=== PATIENT | male | born 1935 | race Caucasian/White ===

== ENCOUNTER 2017-10-10 01:48 | Emergency (ER) | payer MEDICARE, OTHER ==
[2017-10-10 02:25] VITALS: BP 167/74
--- NOTE | 2017-10-10 05:15 | EDM.PDOC ---
ED HPI GENERAL MEDICAL PROBLEM - General Chief Complaint: Chest Pain Stated Complaint: CHEST PAINS [id number] Time Seen by Provider: 10/10/17 02:40 Source of Information: Reports: Patient, Family, RN, RN Notes Reviewed History Limitations: Reports: No Limitations - History of Present Illness INITIAL COMMENTS - FREE TEXT/NARRATIVE: Pt presents to the ER with c/o chest pain that woke him at 0100. Pt states he took nitro x3 that relieved the pain. Pt denies SOB, radiation of pain. He states he had stents placed 1-2 years ago, after an GA. He states the pain was 5 /10 when present. Patient states he is pain free at this time. Onset: Today, Sudden Location: Reports: Chest Quality: Reports: Pressure Severity: Moderate Improves with: Reports: Medication Worsens with: Reports: None Associated Symptoms: Reports: No Other Symptoms Treatments DELI ASSOCIATE: Reports: Nitroglycerin Left Anterior Chest Pain Score (Numeric/FACES): 0 - Related Data Allergies Allergy/AdvReac Type Severity Reaction Status Date / Time codeine Allergy Hallucinati Verified 10/10/17 02:53 ons hydralazine Allergy Headache Verified 10/10/17 02:53 lansoprazole [From Prevacid] Allergy Rash Verified 10/10/17 02:53 morphine Allergy Cannot Verified 10/10/17 02:53 Remember Home Meds: Home Meds Isosorbide Mononitrate [Isosorbide Mononitrate ER] 60 mg PO BID 09/21/15 [ History] Simvastatin [Zocor] 10 mg PO DAILY 09/21/15 [History] Calcium Carb & Citrate/Vit D3 [Calcium + D3 ER Tablet] 1 tab PO BID 03/22/16 [ History] Furosemide [Lasix] 20 mg PO ASDIRECTED 03/22/16 [History] Losartan [Cozaar] 75 mg PO BID 03/22/16 [History] Metoprolol Succinate [Toprol XL 50mg] 25 mg PO DAILY 03/22/16 [History] NIFEdipine [Nifedipine ER] 30 mg PO DAILY 03/22/16 [History] Ranitidine [Zantac] 150 mg PO DAILY 03/22/16 [History] Clopidogrel Bisulfate [Clopidogrel] 75 mg PO DAILY 05/23/16 [History] Nitroglycerin [IJP: Nitroglycerin] 1 tab SL ASDIRECTED 05/23/16 [History] Aspirin 81 mg PO ONETIME 09/15/16 [History] Past Medical History HEENT History: Reports: Hard of Hearing, Impaired Vision Cardiovascular History: Reports: CAD, High Cholesterol, Hypertension, [place], Stents Gastrointestinal History: Reports: GERD Genitourinary History: Reports: Renal Disease, Other (See Below) Other Genitourinary History: proteinuria Musculoskeletal History: Reports: Arthritis Oncologic (Cancer) History: Reports: Prostate, Renal Other Oncologic History: skin - Past Surgical History Cardiovascular Surgical History: Reports: None, Coronary Artery Stent GI Surgical History: Reports: None, Hernia, Inguinal, Hernia Repair/Other Male Surgical History: Reports: Nephrectomy, Other (See Below) Musculoskeletal Surgical History: Reports: None Dermatological Surgical History: Reports: Other (See Below) Social & Family History - Family History Family Medical History: Noncontributory - Tobacco Use Smoking Status *Q: Never Smoker Second Hand Smoke Exposure: No - Caffeine Use Caffeine Use: Reports: Coffee - Recreational Drug Use Recreational Drug Use: No ED ROS GENERAL - Review of Systems Review Of Systems: ROS reveals no pertinent complaints other than HPI. ED EXAM, GENERAL - Physical Exam Exam: See Below Exam Limited By: No Limitations General Appearance: Alert, WD/WN, No Apparent Distress Eye Exam: Bilateral Eye: EOMI, Normal Inspection, PERRL Ears: Normal External Exam, Hearing Grossly Normal Nose: Normal Inspection Throat/Mouth: Normal Inspection, Normal Voice, No Airway Compromise Head: Atraumatic, Normocephalic Neck: Normal Inspection, Supple, Non-Tender, Full Range of Motion Respiratory/Chest: No Respiratory Distress, Lungs Clear, Normal Breath Sounds, No Accessory Muscle Use, Chest Non-Tender Cardiovascular: Normal Peripheral Pulses, Regular Rate, Rhythm, No Edema, No Gallop, No JVD, No Murmur, No Rub Peripheral Pulses: 2+: Radial (L), Radial (R), Dorsalis Pedis (L), Dorsalis Pedis (R) GI/Abdominal: Normal Bowel Sounds, Soft, Non-Tender, No Distention (Male) Exam: Deferred Rectal (Males) Exam: Deferred Back Exam: Normal Inspection, Full Range of Motion, NT Extremities: Normal Inspection, Normal Range of Motion, Non-Tender, Normal Capillary Refill, No Pedal Edema Neurological: Alert, Oriented, CN II-XII Intact, Normal Cognition, Normal Gait, Normal Reflexes, No Motor/Sensory Deficits Psychiatric: Normal Affect, Normal Mood Skin Exam: Warm, Dry, Intact, Normal Color, No Rash Lymphatic: No Adenopathy Course - Vital Signs Last Recorded V/S: Last Vital Signs Temp 98.5 F 10/10/17 02:05 Pulse 58 L 10/10/17 02:05 Resp 17 10/10/17 02:05 BP 167/74 H 10/10/17 02:05 Pulse Ox 96 10/10/17 02:05 - Orders/Labs/Meds Orders: Active Orders 24 hr Category Date Time Status EKG Documentation Completion [RC] URGENT Care 10/10/17 01:55 Active Chest 1V Frontal [CR] Urgent Exams 10/10/17 01:56 Taken Labs: Laboratory Tests 10/10/17 10/10/17 10/10/17 Range/Units 02:03 02:03 06:04 WBC 5.9 (5.0-10.0) 10^3/uL RBC 3.80 L (4.6-6.2) 10^6/uL Hgb 12.2 L (14.0-18.0) g/dL Hct 34.9 L (40.0-54.0) % MCV 91.8 (80-100) fL MCH 32.1 (27.0-34.0) pg MCHC 35.0 (33.0-35.0) g/dL Plt Count 189 (150-450) 10^3/uL Sodium 140 (135-145) mmol/L Potassium 4.3 (3.6-5.0) mmol/L Chloride 106 (101-111) mmol/L Carbon Dioxide 26.0 (21.0-31.0) mmol/L Anion Gap 12.3 BUN 28 H (7-18) mg/dL Creatinine 2.0 H (0.6-1.3) mg/dL Est Cr Clr Drug Dosing 26.14 mL/min Estimated GFR (MDRD) 32 BUN/Creatinine Ratio 14.00 Glucose 90 (74-105) mg/dL Calcium 9.0 (8.4-10.2) mg/dl Total Bilirubin 0.6 (0.2-1.0) mg/dL AST 37 (10-42) IU/L ALT 27 (10-60) IU/L Alkaline Phosphatase 54 (42-121) IU/L Troponin I 0.03 H* 0.03 H* (0.00-0.02) ng/ml Total Protein 7.0 (6.7-8.2) g/dl Albumin 3.9 (3.2-5.5) g/dl Globulin 3.1 Albumin/Globulin Ratio 1.26 Repeat Troponin 0.03 Departure - Departure Time of Disposition: 06:33 Disposition: Home, Self-Care 01 Condition: Fair Clinical Impression: Angina at rest Instructions: Angina Pectoris, [id number] Forms: ED Department Discharge Additional Instructions: Follow up with your primary care facility this week. Follow up with Cardiology. - My Orders Last 24 Hours: My Active Orders 10/10/17 01:55 EKG Documentation Completion [RC] URGENT 10/10/17 01:56 Chest 1V Frontal [CR] Urgent - Assessment/Plan Last 24 Hours: My Active Orders 10/10/17 01:55 EKG Documentation Completion [RC] URGENT 10/10/17 01:56 Chest 1V Frontal [CR] Urgent
--- NOTE | 2017-10-11 18:50 | EKG ---
10/10/2017 - CARSON KRAUSE I reviewed the EKG and agree with the machine's reading. [facility] /[id number]
== END 2017-10-10 06:45 | disposition home or self-care (01) ==
LOC: DL.ED 01:48
DX: I20.9 Angina pectoris, unspecified (principal); I10 Essential (primary) hypertension; I25.10 Atherosclerotic heart disease of native coronary artery without angina pectoris; E78.00 Pure hypercholesterolemia, unspecified; Z95.5 Presence of coronary angioplasty implant and graft; Z79.82 Long term (current) use of aspirin; Z79.02 Long term (current) use of antithrombotics/antiplatelets; Z79.899 Other long term (current) drug therapy; Z88.5 Allergy status to narcotic agent; Z88.8 Allergy status to other drugs, medicaments and biological substances
CPT/HCPCS: 36415; 71045; 80053; 84484; 85027; 93005; 93010; 99284; 99285

== ENCOUNTER 2018-11-24 09:39 | Emergency (ER) | payer MEDICARE, OTHER ==
[2018-11-24] MEDS ORDERED: Polyethylene Glycol 3350 Powder 17 GM Packet PO ONE (10:09)
--- NOTE | 2018-11-24 10:12 | EDM.PDOC ---
ED HPI GENERAL MEDICAL PROBLEM - General Chief Complaint: Abdominal Pain Stated Complaint: ABDOMINAL PAIN Time Seen by Provider: 11/24/18 10:10 Source of Information: Reports: Patient History Limitations: Reports: No Limitations - History of Present Illness INITIAL COMMENTS - FREE TEXT/NARRATIVE: Patient comes emergency department today with complaints of abdominal pain and constipation. He does have some waxing and waning constipation in the past. He has had left lower quadrant abdominal pain for the past 2-3 days. He is really not had a good bowel movement in 4-5 days. He typically takes Metamucil on a daily basis. He has no fever no chills. No nausea no vomiting. No weakness dizziness lightheadedness. No fever no chills he did try an enema this morning without resolution. - Related Data Allergies Allergy/AdvReac Type Severity Reaction Status Date / Time codeine Allergy Hallucinati Verified 10/10/17 02:53 ons hydralazine Allergy Headache Verified 10/10/17 02:53 lansoprazole [From Prevacid] Allergy Rash Verified 10/10/17 02:53 morphine Allergy Cannot Verified 10/10/17 02:53 Remember Home Meds: Home Meds Isosorbide Mononitrate [Isosorbide Mononitrate ER] 60 mg PO BID 09/21/15 [ History] Simvastatin [Zocor] 10 mg PO DAILY 09/21/15 [History] Calcium Carb & Citrate/Vit D3 [Calcium + D3 ER Tablet] 1 tab PO BID 03/22/16 [ History] Furosemide [Lasix] 20 mg PO ASDIRECTED 03/22/16 [History] Losartan [Cozaar] 75 mg PO BID 03/22/16 [History] Metoprolol Succinate [Toprol XL 50mg] 25 mg PO DAILY 03/22/16 [History] NIFEdipine [Nifedipine ER] 30 mg PO DAILY 03/22/16 [History] Ranitidine [Zantac] 150 mg PO DAILY 03/22/16 [History] Clopidogrel Bisulfate [Clopidogrel] 75 mg PO DAILY 05/23/16 [History] Nitroglycerin [IJP: Nitroglycerin] 1 tab SL ASDIRECTED 05/23/16 [History] Aspirin 81 mg PO ONETIME 09/15/16 [History] Past Medical History HEENT History: Reports: Hard of Hearing, Impaired Vision Cardiovascular History: Reports: CAD, High Cholesterol, Hypertension, [place], Stents Gastrointestinal History: Reports: GERD Genitourinary History: Reports: Renal Disease, Other (See Below) Other Genitourinary History: proteinuria Musculoskeletal History: Reports: Arthritis Oncologic (Cancer) History: Reports: Prostate, Renal Other Oncologic History: skin - Past Surgical History Cardiovascular Surgical History: Reports: None, Coronary Artery Stent GI Surgical History: Reports: None, Hernia, Inguinal, Hernia Repair/Other Male Surgical History: Reports: Nephrectomy, Other (See Below) Musculoskeletal Surgical History: Reports: None Dermatological Surgical History: Reports: Other (See Below) Social & Family History - Family History Family Medical History: Noncontributory - Caffeine Use Caffeine Use: Reports: Coffee ED ROS GENERAL - Review of Systems Review Of Systems: ROS reveals no pertinent complaints other than HPI. ED EXAM, GI/ABD - Physical Exam Exam: See Below Exam Limited By: No Limitations General Appearance: Alert, WD/WN, No Apparent Distress Ears: Normal External Exam Nose: Normal Inspection, Normal Mucosa Throat/Mouth: Normal Inspection, Normal Lips, Normal Oropharynx Respiratory/Chest: No Respiratory Distress, Lungs Clear, No Accessory Muscle Use Cardiovascular: Normal Peripheral Pulses, Regular Rate, Rhythm GI/Abdominal Exam: Soft, No Organomegaly, No Abnormal Bruit, No Mass, Tender ( Generalized tenderness without guarding or rebound.), Abnormal Bowel Sounds ( Decreased bowel sounds). No: Distended, Guarding, Rebound Back Exam: Normal Inspection Extremities: Normal Inspection, Normal Capillary Refill Neurological: Alert, Oriented Psychiatric: Normal Affect Skin Exam: Warm, Dry, Intact, Normal Color, No Rash Course - Vital Signs Last Recorded V/S: Last Vital Signs Temp 36.8 C 11/24/18 11:15 Pulse 64 11/24/18 11:15 Resp 16 11/24/18 11:15 BP 168/71 H 11/24/18 11:15 Pulse Ox 96 11/24/18 11:15 - Orders/Labs/Meds Orders: Active Orders 24 hr Category Date Time Status Enema [RC] ASDIRECTED Care 11/24/18 10:10 Active Meds: Medications Discontinued Medications Generic Name Dose Route Start Last Admin Trade Name Freq PRN Reason Stop Dose Admin Magnesium Citrate 296 ml 11/24/18 11:53 11/24/18 12:10 Citrate Of Magnesia PO 11/24/18 11:54 296 ml ONETIME ONE Administration Polyethylene Glycol 34 gm 11/24/18 10:09 11/24/18 11:20 Miralax PO 11/24/18 10:10 34 gm ONETIME ONE Administration - Re-Assessments/Exams Free Text/Narrative Re-Assessment/Exam: 11/24/18 10:12 MiraLAX 34 g by mouth. Enema soap suds. 11/24/18 19:28 Pt did have a small amount of stool after the magnesium citrate and the miralax and enema. He feels much better. No nausea no vomiting no abd pain. REpeat exam of the abd shows a soft none tender none distended abd. We will send home on miralax and increased hydration. The patietn is comfortable with this plan and questions answered. Departure - Departure Time of Disposition: 14:01 Disposition: Home, Self-Care 01 Clinical Impression: Constipation Qualifiers: Constipation type: unspecified constipation type Qualified Code(s): K59.00 - Constipation, unspecified - Discharge Information Instructions: Constipation, Adult, [id number] Forms: ED Department Discharge Additional Instructions: Increase fluids as much as possible over the next few days. Miralax, OTC, 1 capful daily with a large glass of water. May increase by 1 capful every 2 days until easy smooth bowel movement. i.e. in 2 days 2 capfuls, 4 days 3 capfuls.... Return to the ED if new or worsening symptoms. Follow up with primary care provider in the next 4-6 days if not improving. - My Orders Last 24 Hours: My Active Orders 11/24/18 10:10 Enema [RC] ASDIRECTED - Assessment/Plan Last 24 Hours: My Active Orders 11/24/18 10:10 Enema [RC] ASDIRECTED Assessment:: constipation. Plan: Increase fluids as much as possible over the next few days. Miralax, OTC, 1 capful daily with a large glass of water. May increase by 1 capful every 2 days until easy smooth bowel movement. i.e. in 2 days 2 capfuls, 4 days 3 capfuls.... Return to the ED if new or worsening symptoms. Follow up with primary care provider in the next 4-6 days if not improving.
[2018-11-24] MEDS ORDERED: Magnesium Citrate Solution 296 ML Bottle PO ONE (11:53)
[2018-11-24 11:57] VITALS: BP 168/71
== END 2018-11-24 14:10 | disposition home or self-care (01) ==
LOC: DL.ED 09:39
DX: K59.00 Constipation, unspecified (principal); E78.00 Pure hypercholesterolemia, unspecified; I10 Essential (primary) hypertension; I25.10 Atherosclerotic heart disease of native coronary artery without angina pectoris; I25.2 Old myocardial infarction; K21.9 Gastro-esophageal reflux disease without esophagitis; Z88.5 Allergy status to narcotic agent; Z95.5 Presence of coronary angioplasty implant and graft; Z88.8 Allergy status to other drugs, medicaments and biological substances; Z79.899 Other long term (current) drug therapy
CPT/HCPCS: 74019; 99284; A9270

== ENCOUNTER 2018-11-26 21:03 | Inpatient (IN) | payer MEDICARE, OTHER ==
[2018-11-26] MEDS ORDERED: fentaNYL 100 MCG/2 ML SDV IVPUSH ONE ×2 (21:45→23:26)
[2018-11-26 22:01] LABS: ANION GAP 16.8; CHLORIDE,CL 102 mmol/L (101-111); SODIUM,NA 138 mmol/L (135-145)
--- NOTE | 2018-11-26 23:17 | EDM.PDOC ---
ED HPI GENERAL MEDICAL PROBLEM - General Chief Complaint: Abdominal Pain Stated Complaint: CONSTIPATED STILL Time Seen by Provider: 11/26/18 21:10 Source of Information: Reports: Patient History Limitations: Reports: No Limitations - History of Present Illness INITIAL COMMENTS - FREE TEXT/NARRATIVE: ED with c/o constipation. Patient seen 2 nights prior with same c/o. Enema attempted, with minimal result, home with mirlax, dulcolax and mag citrate, small few "berenice today. More severe pain and cramping tonight. 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 Abdominal Pain Score (Numeric/FACES): 9 - Related Data Allergies Allergy/AdvReac Type Severity Reaction Status Date / Time codeine Allergy Hallucinati Verified 11/26/18 23:26 ons hydralazine Allergy Headache Verified 11/26/18 23:26 lansoprazole [From Prevacid] Allergy Rash Verified 11/26/18 23:26 morphine Allergy Cannot Verified 11/26/18 23:26 Remember Home Meds: Home Meds Calcium Carb & Citrate/Vit D3 [Calcium + D3 ER Tablet] 1 tab PO BID 03/22/16 [ History] Furosemide [Lasix] 20 mg PO ASDIRECTED 03/22/16 [History] Clopidogrel Bisulfate [Clopidogrel] 75 mg PO DAILY 05/23/16 [History] Nitroglycerin [IJP: Nitroglycerin] 1 tab SL ASDIRECTED PRN 05/23/16 [History] Aspirin 81 mg PO ONETIME 09/15/16 [History] Acetaminophen 1,000 mg PO Q6H PRN 11/26/18 [History] Esomeprazole Magnesium 20 mg PO BID 11/26/18 [History] atorvaSTATin [Lipitor] 10 mg PO BEDTIME 11/26/18 [History] Isosorbide Mononitrate [Isosorbide Mononitrate ER] 90 mg PO BID 11/27/18 [ History] Losartan Potassium 75 mg PO BID 11/27/18 [History] NIFEdipine [Nifedipine ER] 30 mg PO DAILY 11/27/18 [History] Past Medical History HEENT History: Reports: Hard of Hearing, Impaired Vision Cardiovascular History: Reports: CAD, High Cholesterol, Hypertension, [place], Stents Gastrointestinal History: Reports: GERD Genitourinary History: Reports: Renal Disease, Other (See Below) Other Genitourinary History: proteinuria Musculoskeletal History: Reports: Arthritis Psychiatric History: Reports: Anxiety Oncologic (Cancer) History: Reports: Prostate, Renal Other Oncologic History: skin - Past Surgical History Cardiovascular Surgical History: Reports: Coronary Artery Stent GI Surgical History: Reports: Hernia, Inguinal, Hernia Repair/Other Male Surgical History: Reports: Nephrectomy Musculoskeletal Surgical History: Reports: None Social & Family History - Family History Family Medical History: Noncontributory - Tobacco Use Smoking Status *Q: Never Smoker - Caffeine Use Caffeine Use: Reports: Tea - Recreational Drug Use Recreational Drug Use: No ED ROS GENERAL - Review of Systems Review Of Systems: ROS reveals no pertinent complaints other than HPI. ED EXAM, GI/ABD - Physical Exam Exam: See Below Exam Limited By: No Limitations General Appearance: Alert, Moderate Distress Eyes: Bilateral: EOMI Ears: Normal External Exam, Hearing Grossly Normal Throat/Mouth: Normal Inspection Head: Atraumatic, Normocephalic Neck: Normal Inspection Respiratory/Chest: No Respiratory Distress, Lungs Clear, Normal Breath Sounds Cardiovascular: Regular Rate, Rhythm GI/Abdominal Exam: Distended, Tender, Abnormal Bowel Sounds (Faint right upper) , Hernia (hypoactive RUQ, absent LLQ) Extremities: Normal Inspection Neurological: Alert, Oriented, Normal Cognition Psychiatric: Normal Affect Skin Exam: Warm, Dry, Intact, Normal Color Course - Vital Signs Last Recorded V/S: Last Vital Signs Temp 99 F 11/26/18 23:55 Pulse 70 11/26/18 23:55 Resp 16 11/26/18 23:55 BP 156/71 H 11/26/18 23:55 Pulse Ox 97 11/26/18 23:55 - Orders/Labs/Meds Orders: Active Orders 24 hr Category Date Time Status NG [Nasogastric Orogastric Tube Insertion] [OM.PC] Oth 11/26/18 21:46 Ordered Routine Medication Orders Acetaminophen (Tylenol) 650 mg PO Q4H PRN PRN Reason: Pain Aspirin (Aspirin) 81 mg PO ONETIME JOSE Atorvastatin Calcium (Lipitor) 10 mg PO BEDTIME JOSE Bisacodyl (Dulcolax) 10 mg PO DAILY PRN PRN Reason: Constipation Calcium Carbonate (Calcium Carbonate/Vitamin D 1250 Mg-200 Unit) 1 tab PO BID JOSE Clopidogrel Bisulfate (Plavix) 75 mg PO DAILY JOSE Docusate Sodium (Colace) 100 mg PO BID PRN PRN Reason: Constipation Fentanyl (Sublimaze) 25 mcg IVPUSH Q4H PRN PRN Reason: Pain Last Admin: 11/27/18 02:57 Dose: 25 mcg Furosemide (Lasix) 20 mg PO ASDIRECTED [facility] Heparin Sodium (Porcine) (Heparin Sodium) 5,000 units SUBCUT Q8HR [facility] Sodium Chloride (Normal Saline) 1,000 mls @ 125 mls/hr IV ASDIRECTED [facility] Last Admin: 11/27/18 00:54 Dose: 125 mls/hr Ceftriaxone Sodium 2 gm/ (Sodium Chloride) 100 mls @ 200 mls/hr IV Q24H [facility] Last Admin: 11/27/18 01:52 Dose: 200 mls/hr Metronidazole 500 mg/ Premix 100 mls @ 100 mls/hr IV Q8H [facility] Last Admin: 11/27/18 02:48 Dose: 100 mls/hr Isosorbide Mononitrate (Imdur) 90 mg PO BID [facility] Nifedipine (Procardia Xl) 30 mg PO DAILY [facility] Nitroglycerin (Nitrostat) 0.4 mg SL ASDIRECTED PRN PRN Reason: Chest Pain Ondansetron HCl (Zofran) 4 mg IVPUSH Q6H PRN PRN Reason: Nausea/Vomiting Pantoprazole Sodium (Protonix) 40 mg PO ACBREAKFAST [facility] Senna/Docusate Sodium (Senna Plus) 1 tab PO BID [facility] Last Admin: 11/27/18 01:15 Dose: Not Given Labs: Laboratory Tests 11/26/18 11/26/18 Range/Units 21:34 21:34 WBC 9.4 (5.0-10.0) 10^3/uL RBC 4.19 L (4.6-6.2) 10^6/uL Hgb 13.4 L (14.0-18.0) g/dL Hct 38.3 L (40.0-54.0) % MCV 91.4 (80-100) fL MCH 32.0 (27.0-34.0) pg MCHC 35.0 (33.0-35.0) g/dL Plt Count 202 (150-450) 10^3/uL Neut % (Auto) 73.6 (42.2-75.2) % Lymph % (Auto) 13.2 L (20.5-50.1) % [place] % (Auto) 10.6 H (2-8) % Eos % (Auto) 2.4 (1.0-3.0) % Baso % (Auto) 0.2 (0.0-1.0) % Sodium 138 (135-145) mmol/L Potassium 3.8 (3.6-5.0) mmol/L Chloride 102 (101-111) mmol/L Carbon Dioxide 23.0 (21.0-31.0) mmol/L Anion Gap 16.8 BUN 34 H (7-18) mg/dL Creatinine 2.6 H (0.6-1.3) mg/dL Est Cr Clr Drug Dosing TNP Estimated GFR (MDRD) 24 BUN/Creatinine Ratio 13.07 Glucose 118 H (74-105) mg/dL Calcium 8.8 (8.4-10.2) mg/dl Total Bilirubin 1.0 (0.2-1.0) mg/dL AST 41 (10-42) IU/L ALT 26 (10-60) IU/L Alkaline Phosphatase 63 (42-121) IU/L Total Protein 7.2 (6.7-8.2) g/dl Albumin 3.8 (3.2-5.5) g/dl Globulin 3.4 Albumin/Globulin Ratio 1.12 Amylase 92 (28-100) U/L Lipase 36 (22-51) U/L Meds: Medications Generic Name Dose Route Start Last Admin Trade Name Freq PRN Reason Stop Dose Admin Acetaminophen 650 mg 11/26/18 23:55 Tylenol PO Q4H PRN Pain Aspirin 81 mg 11/27/18 01:00 Aspirin PO ONETIME [facility] Atorvastatin Calcium 10 mg 11/27/18 21:00 Lipitor PO BEDTIME [facility] Bisacodyl 10 mg 11/27/18 00:52 Dulcolax PO DAILY PRN Constipation Calcium Carbonate 1 tab 11/27/18 09:00 Calcium Carbonate/Vitamin D 1250 Mg-200 Unit PO BID [facility] Clopidogrel Bisulfate 75 mg 11/27/18 09:00 Plavix PO DAILY [facility] Docusate Sodium 100 mg 11/27/18 00:52 Colace PO BID PRN Constipation Fentanyl 25 mcg 11/27/18 00:54 11/27/18 02:57 Sublimaze IVPUSH 25 mcg Q4H PRN Administration Pain Furosemide 20 mg 11/27/18 01:00 Lasix PO ASDIRECTED JOSE Heparin Sodium (Porcine) 5,000 units 11/27/18 06:00 Heparin Sodium SUBCUT Q8HR JOSE Sodium Chloride 1,000 mls @ 125 mls/hr 11/26/18 23:45 11/27/18 00:54 Normal Saline IV 125 mls/hr ASDIRECTED JOSE Administration Ceftriaxone Sodium 2 gm/ 100 mls @ 200 mls/hr 11/27/18 02:00 11/27/18 01:52 Sodium Chloride IV 200 mls/hr Q24H JOSE Administration Metronidazole 500 mg/ Premix 100 mls @ 100 mls/hr 11/27/18 02:30 11/27/18 02: 48 IV 100 mls/hr Q8H JOSE Administration Isosorbide Mononitrate 90 mg 11/27/18 09:00 Imdur PO BID JOSE Nifedipine 30 mg 11/27/18 09:00 Procardia Xl PO DAILY [facility] Nitroglycerin 0.4 mg 11/27/18 00:50 Nitrostat SL ASDIRECTED PRN Chest Pain Ondansetron HCl 4 mg 11/26/18 23:55 Zofran IVPUSH Q6H PRN Nausea/Vomiting Pantoprazole Sodium 40 mg 11/27/18 06:00 Protonix PO ACBREAKFAST [facility] Senna/Docusate Sodium 1 tab 11/27/18 00:55 11/27/18 01:15 Senna Plus PO Not Given BID [facility] Discontinued Medications Generic Name Dose Route Start Last Admin Trade Name Kipq PRN Reason Stop Dose Admin Fentanyl 50 mcg 11/26/18 21:45 11/26/18 21:59 Sublimaze IVPUSH 11/26/18 21:46 50 mcg ONETIME ONE Administration Fentanyl 50 mcg 11/26/18 23:26 11/26/18 23:45 Sublimaze IVPUSH 11/26/18 23:27 50 mcg ONETIME ONE Administration Ertapenem 1 gm/ Sodium 50 mls @ 100 mls/hr 11/27/18 00:45 11/27/18 01:45 Chloride IV 11/29/18 09:29 Not Given DAILY JOSE - Radiology Interpretation Free Text/Narrative:: Name: CARSON KRAUSE Age: 83Years M Date: 11/26/2018 SSN: -- : [id number] Study: XR ABDOMEN 1 VIEW Requesting Physician: DARRYL SPEARS Images: 1 Addl Studies: Provided Clinical History: Contrast: Contrast Medium: Contrast Amount: Contrast Method: CONFIDENTIALITY STATEMENT This report is intended only for use by the referring physician, and only in accordance with law. If you received this in error, call [phone]. Page 1 of 1 EXAM: XR Abdomen, 1 View EXAM DATE/TIME: 11/26/2018 9:07 PM CLINICAL HISTORY: 83 years old, male; Signs and symptoms; Constipation TECHNIQUE: Imaging protocol: Frontal supine view of the abdomen/pelvis. COMPARISON: CR Abdomen 2V AP Flat Upright 11/24/2018 9:55 AM FINDINGS: Gastrointestinal tract: Multiple air-fluid levels raising concern for a possible bowel obstruction. Intraperitoneal space: No pneumoperitoneum. Bones/joints: Unremarkable for age. IMPRESSION: Multiple air-fluid levels raising concern for a possible bowel obstruction. Thank you for allowing us to participate in the care of your patient. Dictated and Authenticated by: Kashif Guillaume MD 11/26/2018 10:01 PM Central Time ([place] & [place]) [facility] Final Radiology Report Call: [phone] assistance Online chat: [email or web address] Name: CARSON KRAUSE Age: 83Years M Date: 11/26/2018 SSN: -- : [id number] Study: CT ABDOMEN/PELVIS WO Requesting Physician: DARRYL SPEARS Images: 226 Addl Studies: Provided Clinical History: Contrast: Without Contrast Medium: Contrast Amount: Contrast Method: Page 1 of 2 EXAM: CT Abdomen and Pelvis Without Contrast EXAM DATE/TIME: 11/26/2018 10:18 PM CLINICAL HISTORY: 83 years old, male; Pain; Abdominal pain; Generalized; Patient HX: PT has HX of prostate CA, HX of pre CA in kidneys with nephrectomy, appendectomy TECHNIQUE: Imaging protocol: Axial computed tomography images of the abdomen and pelvis without contrast. Coronal and sagittal reformatted images were created and reviewed. Radiation optimization: All CT scans at this facility use at least one of these dose optimization techniques: automated exposure control; mA and/or kV adjustment per patient size (includes targeted exams where dose is matched to clinical indication); or iterative reconstruction. COMPARISON: CT Abdomen Pelvis wo Cont 07/26/2017 2:50 PM FINDINGS: Lower thorax: Some strandy opacities are seen in the right middle lobe and right lower lobe and moderate strandy opacities are seen in the left lung base, findings likely represent a atelectasis versus pleural parenchymal scarring. ABDOMEN: Liver: Normal. No mass. Gallbladder and bile ducts: A solitary gallstone is seen. There no inflammatory changes seen to suggest cholecystitis. Pancreas: Normal. No ductal dilation. Spleen: Normal. No splenomegaly. CARSON KRAUSE | Final Radiology Report CONFIDENTIALITY STATEMENT This report is intended only for use by the referring physician, and only in accordance with law. If you received this in error, call [phone]. Page 2 of 2 Adrenals: Normal. No mass. Kidneys and ureters: A hyperdense lesion is again seen on the upper pole of the left kidney unchanged in size compared with 07/26/2017. Smaller hyperdense lesions are seen within the left kidney again appears stable compared with the previous examination. Status post right nephrectomy. Stomach and bowel: Particular present on the sigmoid colon. There are some strandy and hazy opacities adjacent to the distal descending colon or proximal sigmoid colon, findings could represent diverticulitis. There fluid filled nondilated loops of small bowel present with a fluid-filled colon seen. A diffuse enteritis cannot be excluded as well. Appendix: No evidence of appendicitis. PELVIS: Bladder: Unremarkable as visualized. Reproductive: Unremarkable as visualized. ABDOMEN and PELVIS: Intraperitoneal space: Normal. No free air. No significant fluid collection. Bones/joints: No acute fracture. No dislocation. Soft tissues: Unremarkable. Vasculature: Calcifications are seen within the thoracic and abdominal aorta, iliac and femoral arteries bilaterally. Lymph nodes: A few small retroperitoneal lymph nodes are seen below CT criteria for lymphadenopathy. IMPRESSION: 1. Diverticulosis of the sigmoid colon. Hazy and linear inflammatory changes seen adjacent to the distal descending colon or proximal sigmoid colon, findings suggesting diverticulitis. 2. Nondilated fluid-filled loops of small bowel and fluid-filled large bowel seen likely representing a diffuse enteritis. 3. Stable hyperdensities within the left kidney compared with 07/26/2017. 4. Solitary gallstone without evidence of cholecystitis 5. Strandy opacities in the lower lobes and right middle lobe most probably represents atelectasis or parenchymal or pleural scarring. COMMENT: Consistent with the [employer]'s Incidental Findings Committee Report (J Am Katiana Radiol 2010): Unless the patient's specific circumstances suggest otherwise , any liver lesion 0.5 cm or less, any cystic kidney lesion less than 1.0 cm, and/or any adrenal lesion 1.0 cm or less not otherwise characterized in this report as possessing suspicious or indeterminate imaging features is/are highly likely to be benign and do not require follow-up imaging or biopsy. Thank you for allowing us to participate in the care of your patient. Dictated and Authenticated by: Darell Daley MD 11/26/2018 11:39 PM Central Time ([place] & [place]) - Re-Assessments/Exams Free Text/Narrative Re-Assessment/Exam: 11/26/18 23:30 Dr Russell here , reviewed CT, recommend tx to [facility] due to comorbidities if final report returns as bowel obstruction obstruction. . 11/26/18 23:45 Rad report No obstruction noting diverticulitis/ diffuse enteritis. Dr Russell agree to admit acute. Departure - Departure Time of Disposition: 23:47 Disposition: Admitted As Inpatient 67 Condition: Good Clinical Impression: Diverticulitis, Hx of malignant neoplasm of kidney Abdominal pain Qualifiers: Abdominal location: generalized Qualified Code(s): R10.84 - Generalized abdominal pain CAD (coronary artery disease) Qualifiers: Coronary Disease-Associated Artery/Lesion type: unspecified vessel or lesion type [place] vs. transplanted heart: [place] heart Associated angina: without angina Qualified Code(s): I25.10 - Atherosclerotic heart disease of [place] coronary artery without angina pectoris - Discharge Information - My Orders Last 24 Hours: My Active Orders 11/26/18 21:46 NG [Nasogastric Orogastric Tube Insertion] [OM.PC] Routine - Assessment/Plan Last 24 Hours: My Active Orders 11/26/18 21:46 NG [Nasogastric Orogastric Tube Insertion] [OM.PC] Routine
[2018-11-26] MEDS ORDERED: Ondansetron 4 MG/2 ML SDV IVPUSH PRN (23:55)
[2018-11-26] MEDS ORDERED: Acetaminophen 325 MG Tab PO PRN (23:55)
--- NOTE | 2018-11-26 23:59 | PCM.HP ---
H&P History of Present Illness - General Date of Service: 11/26/18 Admit Problem/Dx: Admission Diagnosis/Problem Admission Diagnosis/Problem Acute diverticulitis of intestine Source of Information: Patient, Old Records, Provider - History of Present Illness Initial Comments - Free Text/Narative: Mr. Waters is an 83 y.o male with medical history significant for CAD s/p stent placement, HI, HTN, HLP, CKD, s/p right nephrectomy, Prostate cancer, and GERD who presented to the ED with complaints of constipation x2 days. He reports that he came to the ED yesterday and enema was attempted but had minimal relief. Was sent home with laxatives but was not able to pass any significant amount of stool so he decided to come to the ED. Patient reports that he started having sharp cramping left lower quadrant abdominal pain on Monday. Called his , who was outside at that time, to check if she was also sick. denied. Thought he was going to have diarrhea but did not have any bowel movements. In the meantime, abdominal pain worsened. Radiates to the right lower quadrant. No exacerbating factor. bought a suppository and he had a small bowel movement which helped improve the pain. States that he came to ED night of Monday and was sent home after enema and was also taking laxatives so he decided to come to the ED tonight. Reports he was given something to drink the Monday night he came to the ED but vomited right away. Otherwise denies emesis. Repots passing gas. denies melena, hematochezia, dysuria, hematuria, back pain, fevers, chills, chest pain, shortness of breath or any acute symptoms. Abdominal Pain Score (Numeric/FACES): 9 - Related Data Allergies/Adverse Reactions: Allergies Allergy/AdvReac Type Severity Reaction Status Date / Time codeine Allergy Hallucinati Verified 11/26/18 23:26 ons hydralazine Allergy Headache Verified 11/26/18 23:26 lansoprazole [From Prevacid] Allergy Rash Verified 11/26/18 23:26 morphine Allergy Cannot Verified 11/26/18 23:26 Remember Home Medications: Home Meds Calcium Carb & Citrate/Vit D3 [Calcium + D3 ER Tablet] 1 tab PO BID 03/22/16 [ History] Furosemide [Lasix] 20 mg PO ASDIRECTED 03/22/16 [History] Clopidogrel Bisulfate [Clopidogrel] 75 mg PO DAILY 05/23/16 [History] Nitroglycerin [IJP: Nitroglycerin] 1 tab SL ASDIRECTED PRN 05/23/16 [History] Aspirin 81 mg PO ONETIME 09/15/16 [History] Acetaminophen 1,000 mg PO Q6H PRN 11/26/18 [History] Esomeprazole Magnesium 20 mg PO BID 11/26/18 [History] atorvaSTATin [Lipitor] 10 mg PO BEDTIME 11/26/18 [History] Isosorbide Mononitrate [Isosorbide Mononitrate ER] 90 mg PO BID 11/27/18 [ History] Losartan Potassium 75 mg PO BID 11/27/18 [History] NIFEdipine [Nifedipine ER] 30 mg PO DAILY 11/27/18 [History] Past Medical History HEENT History: Reports: Hard of Hearing, Impaired Vision Cardiovascular History: Reports: CAD, High Cholesterol, Hypertension, HI, Stents Gastrointestinal History: Reports: GERD Genitourinary History: Reports: Renal Disease, Other (See Below) Other Genitourinary History: proteinuria Musculoskeletal History: Reports: Arthritis Psychiatric History: Reports: Anxiety Oncologic (Cancer) History: Reports: Prostate, Renal Other Oncologic History: skin - Past Surgical History Cardiovascular Surgical History: Reports: Coronary Artery Stent GI Surgical History: Reports: Hernia, Inguinal, Hernia Repair/Other Male Surgical History: Reports: Nephrectomy Musculoskeletal Surgical History: Reports: None Social & Family History - Family History Family Medical History: Noncontributory - Tobacco Use Smoking Status *Q: Never Smoker - Caffeine Use Caffeine Use: Reports: Tea - Recreational Drug Use Recreational Drug Use: No H&P Review of Systems - Review of Systems: Review Of Systems: ROS reveals no pertinent complaints other than HPI. Exam - Exam Exam: See Below - Vital Signs Vital Signs: Last Vital Signs Temp 98.5 F 11/26/18 21:08 Pulse 78 11/26/18 23:21 Resp 20 11/26/18 23:21 BP 164/76 H 11/26/18 23:21 Pulse Ox 96 11/26/18 23:21 Weight: 160 lb - Exam General: Alert, Oriented, Cooperative, Moderate Distress HEENT: Conjunctiva Clear, Hearing Intact, Mucosa Moist & [place], Other (NGT in place. ) Neck: Supple, Trachea Midline Lungs: Clear to Auscultation, Normal Respiratory Effort Cardiovascular: Regular Rate, Regular Rhythm GI/Abdominal Exam: Normal Bowel Sounds, Soft, Tender (in the lower quadrants, Lt >> Rt. Voluntary guarding. ), Other (tympanic to palpation in the upper quadrants, dull to palpation in the lower quadrants. ) Extremities: Normal Inspection, Non-Tender, No Pedal Edema Peripheral Pulses: 2+: Radial (L), Radial (R), Dorsalis Pedis (L), Dorsalis Pedis (R) Skin: Warm, Dry, Intact Neurological: Cranial Nerves Intact Neuro Extensive - Mental Status: Alert, Oriented x3 Psychiatric: Alert, Normal Affect, Normal Mood - Patient Data Lab Results Last 24 hrs: Laboratory Results - last 24 hr 11/26/18 11/26/18 Range/Units 21:34 21:34 WBC 9.4 (5.0-10.0) 10^3/uL RBC 4.19 L (4.6-6.2) 10^6/uL Hgb 13.4 L (14.0-18.0) g/dL Hct 38.3 L (40.0-54.0) % MCV 91.4 (80-100) fL MCH 32.0 (27.0-34.0) pg MCHC 35.0 (33.0-35.0) g/dL Plt Count 202 (150-450) 10^3/uL Neut % (Auto) 73.6 (42.2-75.2) % Lymph % (Auto) 13.2 L (20.5-50.1) % [place] % (Auto) 10.6 H (2-8) % Eos % (Auto) 2.4 (1.0-3.0) % Baso % (Auto) 0.2 (0.0-1.0) % Sodium 138 (135-145) mmol/L Potassium 3.8 (3.6-5.0) mmol/L Chloride 102 (101-111) mmol/L Carbon Dioxide 23.0 (21.0-31.0) mmol/L Anion Gap 16.8 BUN 34 H (7-18) mg/dL Creatinine 2.6 H (0.6-1.3) mg/dL Est Cr Clr Drug Dosing TNP Estimated GFR (MDRD) 24 BUN/Creatinine Ratio 13.07 Glucose 118 H (74-105) mg/dL Calcium 8.8 (8.4-10.2) mg/dl Total Bilirubin 1.0 (0.2-1.0) mg/dL AST 41 (10-42) IU/L ALT 26 (10-60) IU/L Alkaline Phosphatase 63 (42-121) IU/L Total Protein 7.2 (6.7-8.2) g/dl Albumin 3.8 (3.2-5.5) g/dl Globulin 3.4 Albumin/Globulin Ratio 1.12 Amylase 92 (28-100) U/L Lipase 36 (22-51) U/L Result Diagrams: 11/26/18 21:34 11/26/18 21:34 - Problem List (1) Hyperlipidemia SNOMED Code(s): 52339926 ICD Code: E78.5 - HYPERLIPIDEMIA, UNSPECIFIED Status: Acute Current Visit : Yes (2) Status post nephrectomy SNOMED Code(s): 340997271, 424450137 ICD Code: Z90.5 - ACQUIRED ABSENCE OF KIDNEY Status: Acute Current Visit : Yes (3) Acute kidney injury superimposed on CKD SNOMED Code(s): 60552485 ICD Code: N17.9 - ACUTE KIDNEY FAILURE, UNSPECIFIED; N18.9 - CHRONIC KIDNEY DISEASE, UNSPECIFIED Status: Acute Current Visit: Yes (4) CAD (coronary artery disease) SNOMED Code(s): 16699629 ICD Code: I25.10 - ATHSCL HEART DISEASE OF [place] CORONARY ARTERY W/O ANG PCTRS Status: Acute Current Visit: No Qualifiers: Coronary Disease-Associated Artery/Lesion type: unspecified vessel or lesion type [place] vs. transplanted heart: [place] heart Associated angina: without angina Qualified Code(s): I25.10 - Atherosclerotic heart disease of [place] coronary artery without angina pectoris (5) Diverticulitis SNOMED Code(s): 334492799 ICD Code: K57.92 - DVTRCLI OF INTEST, PART UNSP, W/O PERF OR ABSCESS W/O BLEED Status: Acute Current Visit: No (6) Hypertension SNOMED Code(s): 93046917 ICD Code: I10 - ESSENTIAL (PRIMARY) HYPERTENSION Status: Acute Current Visit: No Onset Date: 09/21/15 Problem List Initiated/Reviewed/Updated: Yes Orders Last 24hrs: Active Orders 24 hr Category Date Time Status Patient Status [ADT] Routine ADT 11/26/18 23:55 Ordered Height and Weight [RC] UPON Care 11/26/18 23:55 Ordered Intake and Output [RC] QSHIFT Care 11/26/18 23:57 Ordered Oxygen Therapy [RC] PRN Care 11/26/18 23:55 Ordered Up ad Wendi [RC] ASDIRECTED Care 11/26/18 23:55 Ordered VTE/DVT Education [RC] PER UNIT ROUTINE Care 11/26/18 23:55 Ordered Vital Signs [RC] Q4H Care 11/26/18 23:55 Ordered Nothing per Oral After Midnight Diet [DIET] Diet 11/26/18 Dinner Ordered Abdomen 1V Upright [CR] Urgent Exams 11/26/18 21:06 Taken Abdomen Pelvis wo Cont [CT] Urgent Exams 11/26/18 21:45 Taken Acetaminophen [Tylenol] Med 11/26/18 23:55 Ordered 650 mg PO Q4H PRN Heparin Sodium Med 11/27/18 06:00 Ordered 5,000 units SUBCUT Q8HR Ondansetron [Zofran] Med 11/26/18 23:55 Ordered 4 mg IVPUSH Q6H PRN Sodium Chloride 0.9% @ 125 MLS/HR (1000ml) Med 11/26/18 23:45 Ordered Sodium Chloride 0.9% [Normal Saline] 1,000 ml IV ASDIRECTED NG [Nasogastric Orogastric Tube Insertion] [OM.PC] Oth 11/26/18 21:46 Ordered Routine Resuscitation Status Routine Resus Stat 11/26/18 23:55 Ordered Assessment/Plan Comment:: Acute diverticulitis: patient with left lower quadrant pain, 10/10, cramping, and radiating to the right. Progressive. Associated with constipation. CT findings of diverticulitis. - NPO - IVF - Cautious use of pain medications - Tylenol for pain. - Ertapenem #Constipation: patient with diffuse bowel/gas pattern. Also reports decreased to absent bowel movements over the past few days. States he had a large bowel movement right on presentation. - continue NGT to LIWS. - Frequent abdominal exams - Encouraged ambulation - December d/c NGT if patient has second bowel movement. - Continue bowel regimen #CYNDI on CKD: Cr of 2.8, increased from 2.0. - IVF - - Monitor renal function - Avoid nephrotoxins #HTN: BP at goal. - Continue home BP meds. # CAD: - continue home meds. DVT PPx: Heparin GI PPx: NPO for now, may start on clear liquid diet if pain is improved to =/< 4 /10 and patient ready to start diet. Code status: Full Code.
[2018-11-27] MEDS ORDERED: Ertapenem 1 GM in Sodium Chloride 0.9% 50 ML IV SCH (00:45)
[2018-11-27] MEDS ORDERED: Nitroglycerin 0.4 MG Tab.SL SL PRN (00:50)
[2018-11-27] MEDS ORDERED: Docusate Sodium 100 MG Cap PO PRN (00:52)
[2018-11-27] MEDS ORDERED: Bisacodyl 5 MG Tab PO PRN (00:52)
[2018-11-27] MEDS ORDERED: fentaNYL 100 MCG/2 ML SDV IVPUSH PRN (00:54)
[2018-11-27] MEDS: Sodium Chloride 0.9% 1,000 ML IV SCH ×3 (00:54→20:50)
[2018-11-27] MEDS ORDERED: Aspirin 81 MG Tab.Chew PO SCH (01:00)
[2018-11-27] MEDS ORDERED: Furosemide 20 MG Tab PO SCH (01:00)
[2018-11-27] MEDS: cefTRIAXone 2 GM in Sodium Chloride 0.9% 100 ML IV SCH (01:52)
[2018-11-27] MEDS: metroNIDAZOLE/Normal Saline 500 MG in Premix Bag 100 BAG IV SCH ×3 (02:48→18:18)
[2018-11-27] MEDS: Pantoprazole 40 MG Tab.CR PO SCH (06:09)
[2018-11-27] MEDS: Heparin Sodium 5,000 Units/ML Vial SUBCUT SCH ×3 (06:09→22:04)
[2018-11-27] MEDS: NIFEdipine 30 MG Tab.ER PO SCH (09:19)
[2018-11-27] MEDS: Calcium Carbonate/Vitamin D3 1250 MG-200 Unit Tab PO SCH ×2 (09:20→20:54)
[2018-11-27] MEDS: Clopidogrel 75 MG Tab PO SCH (09:20)
[2018-11-27] MEDS: Isosorbide Mononitrate 60 MG Tab.ER PO SCH ×2 (09:22→20:55)
--- NOTE | 2018-11-27 11:29 | PCM.PN ---
- General Info Date of Service: 11/27/18 Admission Dx/Problem (Free Text): Admission Diagnosis/Problem Admission Diagnosis/Problem Acute diverticulitis of intestine Subjective Update: No acute events overnight. Reports that his pain is improved. Now 09/06. Had a non-bloody bowel movement this morning. Denies fevers, chills, shortness of breath, chest pain, n/v/d/c, or any new symptoms. Functional Status: Reports: Pain Controlled - Review of Systems General: Reports: No Symptoms HEENT: Reports: No Symptoms Pulmonary: Reports: No Symptoms Cardiovascular: Reports: No Symptoms Gastrointestinal: Reports: Abdominal Pain Genitourinary: Reports: No Symptoms Musculoskeletal: Reports: No Symptoms Skin: Reports: No Symptoms Neurological: Reports: No Symptoms Psychiatric: Reports: No Symptoms - Patient Data Vitals - Most Recent: Last Vital Signs Temp 98.6 F 11/27/18 07:41 Pulse 62 11/27/18 07:41 Resp 20 11/27/18 07:41 BP 152/70 H 11/27/18 09:19 Pulse Ox 96 11/27/18 07:41 Weight - Most Recent: 160 lb I&O - Last 24 Hours: Intake & Output 11/26/18 11/27/18 11/27/18 22:59 06:59 14:59 Output Total 400 Balance -400 Lab Results Last 24 Hours: Laboratory Results - last 24 hr 11/26/18 11/26/18 11/27/18 Range/Units 21:34 21:34 10:15 WBC 9.4 (5.0-10.0) 10^3/uL RBC 4.19 L (4.6-6.2) 10^6/uL Hgb 13.4 L (14.0-18.0) g/dL Hct 38.3 L (40.0-54.0) % MCV 91.4 (80-100) fL MCH 32.0 (27.0-34.0) pg MCHC 35.0 (33.0-35.0) g/dL Plt Count 202 (150-450) 10^3/uL Neut % (Auto) 73.6 (42.2-75.2) % Lymph % (Auto) 13.2 L (20.5-50.1) % [place] % (Auto) 10.6 H (2-8) % Eos % (Auto) 2.4 (1.0-3.0) % Baso % (Auto) 0.2 (0.0-1.0) % Sodium 138 140 (135-145) mmol/L Potassium 3.8 4.0 (3.6-5.0) mmol/L Chloride 102 106 (101-111) mmol/L Carbon Dioxide 23.0 25.0 (21.0-31.0) mmol/L Anion Gap 16.8 13.0 BUN 34 H 29 H (7-18) mg/dL Creatinine 2.6 H 2.2 H (0.6-1.3) mg/dL Est Cr Clr Drug Dosing TNP 24.20 Estimated GFR (MDRD) 24 29 BUN/Creatinine Ratio 13.07 Glucose 118 H 93 (74-105) mg/dL Calcium 8.8 8.2 L (8.4-10.2) mg/dl Total Bilirubin 1.0 (0.2-1.0) mg/dL AST 41 (10-42) IU/L ALT 26 (10-60) IU/L Alkaline Phosphatase 63 (42-121) IU/L Total Protein 7.2 (6.7-8.2) g/dl Albumin 3.8 (3.2-5.5) g/dl Globulin 3.4 Albumin/Globulin Ratio 1.12 Amylase 92 (28-100) U/L Lipase 36 (22-51) U/L Med Orders - Current: Current Medications Acetaminophen (Tylenol) 650 mg PO Q4H PRN PRN Reason: Pain Aspirin (Aspirin) 81 mg PO ONETIME [facility] Atorvastatin Calcium (Lipitor) 10 mg PO BEDTIME [facility] Bisacodyl (Dulcolax) 10 mg PO DAILY PRN PRN Reason: Constipation Calcium Carbonate (Calcium Carbonate/Vitamin D 1250 Mg-200 Unit) 1 tab PO BID [facility] Last Admin: 11/27/18 09:20 Dose: 1 tab Clopidogrel Bisulfate (Plavix) 75 mg PO DAILY [facility] Last Admin: 11/27/18 09:20 Dose: 75 mg Docusate Sodium (Colace) 100 mg PO BID PRN PRN Reason: Constipation Fentanyl (Sublimaze) 25 mcg IVPUSH Q4H PRN PRN Reason: Pain Last Admin: 11/27/18 02:57 Dose: 25 mcg Furosemide (Lasix) 20 mg PO ASDIRECTED [facility] Heparin Sodium (Porcine) (Heparin Sodium) 5,000 units SUBCUT Q8HR [facility] Last Admin: 11/27/18 06:09 Dose: 5,000 units Sodium Chloride (Normal Saline) 1,000 mls @ 125 mls/hr IV ASDIRECTED [facility] Last Admin: 11/27/18 10:43 Dose: 125 mls/hr Ceftriaxone Sodium 2 gm/ (Sodium Chloride) 100 mls @ 200 mls/hr IV Q24H [facility] Last Admin: 11/27/18 01:52 Dose: 200 mls/hr Metronidazole 500 mg/ Premix 100 mls @ 100 mls/hr IV Q8H [facility] Last Admin: 11/27/18 10:43 Dose: 100 mls/hr Isosorbide Mononitrate (Imdur) 90 mg PO BID [facility] Last Admin: 11/27/18 09:22 Dose: 90 mg Nifedipine (Procardia Xl) 30 mg PO DAILY [facility] Last Admin: 11/27/18 09:19 Dose: 30 mg Nitroglycerin (Nitrostat) 0.4 mg SL ASDIRECTED PRN PRN Reason: Chest Pain Ondansetron HCl (Zofran) 4 mg IVPUSH Q6H PRN PRN Reason: Nausea/Vomiting Pantoprazole Sodium (Protonix) 40 mg PO ACBREAKFAST [facility] Last Admin: 11/27/18 06:09 Dose: 40 mg Senna/Docusate Sodium (Senna Plus) 1 tab PO BID [facility] Last Admin: 11/27/18 09:23 Dose: Not Given Discontinued Medications Fentanyl (Sublimaze) 50 mcg IVPUSH ONETIME ONE Stop: 11/26/18 21:46 Last Admin: 11/26/18 21:59 Dose: 50 mcg Fentanyl (Sublimaze) 50 mcg IVPUSH ONETIME ONE Stop: 11/26/18 23:27 Last Admin: 11/26/18 23:45 Dose: 50 mcg Ertapenem 1 gm/ Sodium (Chloride) 50 mls @ 100 mls/hr IV DAILY [facility] Stop: 11/29/18 09:29 Last Admin: 11/27/18 01:45 Dose: Not Given - Exam General: Alert, Oriented, Cooperative, No Acute Distress HEENT: Pupils Equal, Pupils Reactive, Mucous Membr. Moist/[place] Neck: Supple, Trachea Midline Lungs: Clear to Auscultation, Normal Respiratory Effort Cardiovascular: Regular Rate, Regular Rhythm GI/Abdominal Exam: Normal Bowel Sounds, Soft, No Distention, Tender (in the left lower quadrant) Extremities: Normal Inspection, Non-Tender, No Pedal Edema Peripheral Pulses: 2+: Radial (L), Radial (R), Dorsalis Pedis (L), Dorsalis Pedis (R) Skin: Warm, Dry, Intact Neurological: No New Focal Deficit Psy/Mental Status: Alert, Normal Affect, Normal Mood - Problem List & Annotations (1) Hyperlipidemia SNOMED Code(s): 43999654 Code(s): E78.5 - HYPERLIPIDEMIA, UNSPECIFIED Status: Acute Current Visit : Yes (2) Status post nephrectomy SNOMED Code(s): 261132576, 972629216 Code(s): Z90.5 - ACQUIRED ABSENCE OF KIDNEY Status: Acute Current Visit: Yes (3) Acute kidney injury superimposed on CKD SNOMED Code(s): 78977397 Code(s): N17.9 - ACUTE KIDNEY FAILURE, UNSPECIFIED; N18.9 - CHRONIC KIDNEY DISEASE, UNSPECIFIED Status: Acute Current Visit: Yes (4) CAD (coronary artery disease) SNOMED Code(s): 32286287 Code(s): I25.10 - ATHSCL HEART DISEASE OF [place] CORONARY ARTERY W/O ANG PCTRS Status: Acute Current Visit: No Qualifiers: Coronary Disease-Associated Artery/Lesion type: unspecified vessel or lesion type [place] vs. transplanted heart: [place] heart Associated angina: without angina Qualified Code(s): I25.10 - Atherosclerotic heart disease of [place] coronary artery without angina pectoris (5) Diverticulitis SNOMED Code(s): 156254456 Code(s): K57.92 - DVTRCLI OF INTEST, PART UNSP, W/O PERF OR ABSCESS W/O BLEED Status: Acute Current Visit: No (6) Hypertension SNOMED Code(s): 81449090 Code(s): I10 - ESSENTIAL (PRIMARY) HYPERTENSION Status: Acute Current Visit: No Onset Date: 09/21/15 - Problem List Review Problem List Initiated/Reviewed/Updated: Yes - My Orders Last 24 Hours: My Active Orders 11/26/18 23:45 Sodium Chloride 0.9% [Normal Saline] 1,000 ml IV ASDIRECTED 11/26/18 23:55 Patient Status [ADT] Routine Oxygen Therapy [RC] PRN Up ad Wendi [RC] ASDIRECTED VTE/DVT Education [RC] PER UNIT ROUTINE Vital Signs [RC] 04,08,12,16,20,00 Acetaminophen [Tylenol] 650 mg PO Q4H PRN Ondansetron [Zofran] 4 mg IVPUSH Q6H PRN Resuscitation Status Routine 11/26/18 23:57 Intake and Output [RC] QSHIFT 11/27/18 00:50 Nitroglycerin [Nitrostat] 0.4 mg SL ASDIRECTED PRN 11/27/18 00:52 Bisacodyl [Dulcolax] 10 mg PO DAILY PRN Docusate Sodium [Colace] 100 mg PO BID PRN 11/27/18 00:54 fentaNYL [Sublimaze] 25 mcg IVPUSH Q4H PRN 11/27/18 00:55 Docusate Sodium/Sennosides [Senna Plus] 1 tab PO BID 11/27/18 01:00 Aspirin 81 mg PO ONETIME Furosemide [Lasix] 20 mg PO ASDIRECTED 11/27/18 01:02 Communication Order [RC] ROUTINE 11/27/18 02:00 cefTRIAXone [Rocephin] 2 gm Sodium Chloride 0.9% [Normal Saline] 100 ml IV Q24H 11/27/18 02:30 metroNIDAZOLE/Normal Saline [Flagyl 500 MG in NS 100 ML] 500 mg Premix Bag 100 bag IV Q8H 11/27/18 06:00 Heparin Sodium 5,000 units SUBCUT Q8HR Pantoprazole [ProTONIX] 40 mg PO ACBREAKFAST 11/27/18 09:00 Calcium Carbonate/Vitamin D3 [Calcium Carbonate/Vitamin D 1250 MG-200 Unit] 1 tab PO BID Clopidogrel [Plavix] 75 mg PO DAILY Isosorbide Mononitrate [Imdur] 90 mg PO BID NIFEdipine [Procardia XL] 30 mg PO DAILY 11/27/18 21:00 atorvaSTATin [Lipitor] 10 mg PO BEDTIME 11/27/18 Lunch Clear Liquid Diet [DIET] - Plan Plan:: #Acute diverticulitis: Improved. Pain now 1/10. Patient presented with left lower quadrant pain, 10/10, cramping, and radiating to the right. Progressive. Associated with constipation. CT findings of diverticulitis. - Clear liquid diet, advance as tolerated. - IVF - Cautious use of pain medications - Tylenol for pain. - Continue ceftriaxone and flagyl #Constipation: Resolved. Has had 3 good bowel movements since admission. Patient presented with diffuse bowel/gas pattern. Also reports decreased to absent bowel movements over the past few days. States he had a large bowel movement right on presentation. - NGT discontinued. - Encouraged ambulation - Continue bowel regimen #CYNDI on CKD: Improved. Cr down to 2.2 from 2.6 on presentation. Baseline is 2.0. - IVF - - Monitor renal function - Avoid nephrotoxins #HTN: BP at goal. - Continue home BP meds. # CAD: - continue home meds. DVT PPx: Heparin GI PPx: Clear liquid diet, advance as tolerated to cardiac diet. Code status: Full Code.
[2018-11-27] MEDS ORDERED: Dicyclomine 10 MG Cap PO PRN (19:36)
[2018-11-27] MEDS ORDERED: atorvaSTATin 10 MG Tab PO SCH (21:00)
[2018-11-28] MEDS: cefTRIAXone 2 GM in Sodium Chloride 0.9% 100 ML IV SCH (01:41)
[2018-11-28] MEDS: metroNIDAZOLE/Normal Saline 500 MG in Premix Bag 100 BAG IV SCH ×2 (02:13→09:41)
[2018-11-28] MEDS: Pantoprazole 40 MG Tab.CR PO SCH (05:47)
[2018-11-28] MEDS: Heparin Sodium 5,000 Units/ML Vial SUBCUT SCH ×2 (05:49→13:39)
[2018-11-28] MEDS: Sodium Chloride 0.9% 1,000 ML IV SCH (06:24)
[2018-11-28] MEDS: NIFEdipine 30 MG Tab.ER PO SCH (09:39)
[2018-11-28] MEDS: Calcium Carbonate/Vitamin D3 1250 MG-200 Unit Tab PO SCH (09:40)
[2018-11-28] MEDS: Clopidogrel 75 MG Tab PO SCH (09:40)
[2018-11-28] MEDS: Isosorbide Mononitrate 60 MG Tab.ER PO SCH (10:15)
--- NOTE | 2018-11-28 14:59 | PCM.DCSUM1 ---
Discharge Summary - Hospital Course Free Text/Narrative:: Mr. Waters is an 83 y.o male with medical history significant for CAD s/p stent placement, PA, HTN, HLP, CKD, s/p right nephrectomy, Prostate cancer, and GERD who presented to the ED with complaints of constipation x2 days and was found to have acute diverticulitis on CT scan. He was started on Ceftriaxone and Flagyl; with fentanyl for pain. He started having bowel movements. Tolerated clear liquid diet. This was advanced to full liquids and cardiac diet , regular consistency. He had episodes of abdominal cramps that improved with bentyl. He was discharged home to continue flagyl and Cipro. He is to follow up with his PCP. He was given instructions about appropriate diet for diverticulitis. HPI Initial Comments: Mr. Waters is an 83 y.o male with medical history significant for CAD s/p stent placement, PA, HTN, HLP, CKD, s/p right nephrectomy, Prostate cancer, and GERD who presented to the ED with complaints of constipation x2 days. He reports that he came to the ED yesterday and enema was attempted but had minimal relief. Was sent home with laxatives but was not able to pass any significant amount of stool so he decided to come to the ED. Patient reports that he started having sharp cramping left lower quadrant abdominal pain on Monday. Called his , who was outside at that time, to check if she was also sick. denied. Thought he was going to have diarrhea but did not have any bowel movements. In the meantime, abdominal pain worsened. Radiates to the right lower quadrant. No exacerbating factor. bought a suppository and he had a small bowel movement which helped improve the pain. States that he came to ED night of Monday and was sent home after enema and was also taking laxatives so he decided to come to the ED tonight. Reports he was given something to drink the Monday night he came to the ED but vomited right away. Otherwise denies emesis. Repots passing gas. denies melena, hematochezia, dysuria, hematuria, back pain, fevers, chills, chest pain, shortness of breath or any acute symptoms. Diagnosis: Stroke: No - Discharge Data Discharge Date: 11/28/18 Discharge Disposition: Home, Self-Care 01 Condition: Good - Discharge Diagnosis/Problem(s) (1) Hyperlipidemia SNOMED Code(s): 57843862 ICD Code: E78.5 - HYPERLIPIDEMIA, UNSPECIFIED Status: Acute Current Visit : Yes (2) Status post nephrectomy SNOMED Code(s): 010948629, 734188772 ICD Code: Z90.5 - ACQUIRED ABSENCE OF KIDNEY Status: Acute Current Visit : Yes (3) Acute kidney injury superimposed on CKD SNOMED Code(s): 23965196 ICD Code: N17.9 - ACUTE KIDNEY FAILURE, UNSPECIFIED; N18.9 - CHRONIC KIDNEY DISEASE, UNSPECIFIED Status: Acute Current Visit: Yes (4) CAD (coronary artery disease) SNOMED Code(s): 53219705 ICD Code: I25.10 - ATHSCL HEART DISEASE OF [place] CORONARY ARTERY W/O ANG PCTRS Status: Acute Current Visit: No Qualifiers: Coronary Disease-Associated Artery/Lesion type: unspecified vessel or lesion type Tribe vs. transplanted heart: [place] heart Associated angina: without angina Qualified Code(s): I25.10 - Atherosclerotic heart disease of [place] coronary artery without angina pectoris (5) Diverticulitis SNOMED Code(s): 786689573 ICD Code: K57.92 - DVTRCLI OF INTEST, PART UNSP, W/O PERF OR ABSCESS W/O BLEED Status: Acute Current Visit: No (6) Hypertension SNOMED Code(s): 53625783 ICD Code: I10 - ESSENTIAL (PRIMARY) HYPERTENSION Status: Acute Current Visit: No Onset Date: 09/21/15 - Discharge Plan *PRESCRIPTION DRUG MONITORING PROGRAM REVIEWED*: Not Applicable *COPY OF PRESCRIPTION DRUG MONITORING REPORT IN PATIENT JASVIR: Not Applicable Prescriptions/Med Rec: Ciprofloxacin [Cipro XR] 500 mg PO BID 12 Days #24 tab.er Dicyclomine [Bentyl] 10 mg PO QIDACANDBED PRN #20 cap PRN Reason: Abdominal Pain metroNIDAZOLE [Flagyl] 500 mg PO Q8H #36 tablet Home Medications: Home Meds Calcium Carb & Citrate/Vit D3 [Calcium + D3 ER Tablet] 1 tab PO BID 03/22/16 [ History] Furosemide [Lasix] 20 mg PO ASDIRECTED 03/22/16 [History] Clopidogrel Bisulfate [Clopidogrel] 75 mg PO DAILY 05/23/16 [History] Nitroglycerin [IJP: Nitroglycerin] 1 tab SL ASDIRECTED PRN 05/23/16 [History] Aspirin 81 mg PO ONETIME 09/15/16 [History] Acetaminophen 1,000 mg PO Q6H PRN 11/26/18 [History] Esomeprazole Magnesium 20 mg PO BID 11/26/18 [History] atorvaSTATin [Lipitor] 10 mg PO BEDTIME 11/26/18 [History] Isosorbide Mononitrate [Isosorbide Mononitrate ER] 90 mg PO BID 11/27/18 [ History] Losartan Potassium 75 mg PO BID 11/27/18 [History] NIFEdipine [Nifedipine ER] 30 mg PO DAILY 11/27/18 [History] Ciprofloxacin [Cipro XR] 500 mg PO BID 12 Days #24 tab.er 11/28/18 [Rx] Dicyclomine [Bentyl] 10 mg PO QIDACANDBED PRN #20 cap 11/28/18 [Rx] metroNIDAZOLE [Flagyl] 500 mg PO Q8H #36 tablet 11/28/18 [Rx] Patient Handouts: Diverticulitis, [id number], Diverticulosis, Low-Fiber Eating Plan - Discharge Summary/Plan Comment DC Time >30 min.: Yes - General Info Date of Service: 11/28/18 Admission Dx/Problem (Free Text: Admission Diagnosis/Problem Admission Diagnosis/Problem Acute diverticulitis of intestine Subjective Update: No acute events overnight. Reports that he has been tolerating clears and full liquid diet. Passing gas this morning. Last bowel movement was last night. abdominal pain is minimal. Denies fevers, chills, shortness of breath, chest pain, n/v/d/c, or any new symptoms. - Review of Systems General: Reports: No Symptoms HEENT: Reports: No Symptoms Pulmonary: Reports: No Symptoms Cardiovascular: Reports: No Symptoms Gastrointestinal: Reports: No Symptoms Genitourinary: Reports: No Symptoms Musculoskeletal: Reports: No Symptoms Skin: Reports: No Symptoms Neurological: Reports: No Symptoms Psychiatric: Reports: No Symptoms - Patient Data Vitals - Most Recent: Last Vital Signs Temp 98.9 F 11/28/18 12:36 Pulse 64 11/28/18 12:36 Resp 20 11/28/18 12:36 BP 104/57 L 11/28/18 12:36 Pulse Ox 98 11/28/18 12:36 Weight - Most Recent: 160 lb I&O - Last 24 hours: Intake & Output 11/27/18 11/28/18 11/28/18 22:59 06:59 14:59 Intake Total 100 430 Output Total 450 Balance -350 430 Med Orders - Current: Current Medications Acetaminophen (Tylenol) 650 mg PO Q4H PRN PRN Reason: Pain Aspirin (Aspirin) 81 mg PO ONETIME [facility] Atorvastatin Calcium (Lipitor) 10 mg PO BEDTIME [facility] Last Admin: 11/27/18 20:54 Dose: 10 mg Bisacodyl (Dulcolax) 10 mg PO DAILY PRN PRN Reason: Constipation Calcium Carbonate (Calcium Carbonate/Vitamin D 1250 Mg-200 Unit) 1 tab PO BID [facility] Last Admin: 11/28/18 09:40 Dose: 1 tab Clopidogrel Bisulfate (Plavix) 75 mg PO DAILY [facility] Last Admin: 11/28/18 09:40 Dose: 75 mg Dicyclomine HCl (Bentyl) 10 mg PO QIDACANDBED PRN PRN Reason: Abdominal Pain Last Admin: 11/27/18 20:55 Dose: 10 mg Docusate Sodium (Colace) 100 mg PO BID PRN PRN Reason: Constipation Fentanyl (Sublimaze) 25 mcg IVPUSH Q4H PRN PRN Reason: Pain Last Admin: 11/27/18 02:57 Dose: 25 mcg Furosemide (Lasix) 20 mg PO ASDIRECTED [facility] Heparin Sodium (Porcine) (Heparin Sodium) 5,000 units SUBCUT Q8HR [facility] Last Admin: 11/28/18 13:39 Dose: 5,000 units Sodium Chloride (Normal Saline) 1,000 mls @ 125 mls/hr IV ASDIRECTED [facility] Last Admin: 11/28/18 06:24 Dose: 125 mls/hr Ceftriaxone Sodium 2 gm/ (Sodium Chloride) 100 mls @ 200 mls/hr IV Q24H [facility] Last Infusion: 11/28/18 02:12 Dose: Infused Metronidazole 500 mg/ Premix 100 mls @ 100 mls/hr IV Q8H [facility] Last Admin: 11/28/18 09:41 Dose: 100 mls/hr Isosorbide Mononitrate (Imdur) 90 mg PO BID [facility] Last Admin: 11/28/18 10:15 Dose: 90 mg Nifedipine (Procardia Xl) 30 mg PO DAILY [facility] Last Admin: 11/28/18 09:39 Dose: 30 mg Nitroglycerin (Nitrostat) 0.4 mg SL ASDIRECTED PRN PRN Reason: Chest Pain Ondansetron HCl (Zofran) 4 mg IVPUSH Q6H PRN PRN Reason: Nausea/Vomiting Pantoprazole Sodium (Protonix) 40 mg PO ACBREAKFAST [facility] Last Admin: 11/28/18 05:47 Dose: 40 mg Senna/Docusate Sodium (Senna Plus) 1 tab PO BID [facility] Last Admin: 11/28/18 10:16 Dose: 1 tab Discontinued Medications Fentanyl (Sublimaze) 50 mcg IVPUSH ONETIME ONE Stop: 11/26/18 21:46 Last Admin: 11/26/18 21:59 Dose: 50 mcg Fentanyl (Sublimaze) 50 mcg IVPUSH ONETIME ONE Stop: 11/26/18 23:27 Last Admin: 11/26/18 23:45 Dose: 50 mcg Ertapenem 1 gm/ Sodium (Chloride) 50 mls @ 100 mls/hr IV DAILY [facility] Stop: 11/29/18 09:29 Last Admin: 11/27/18 01:45 Dose: Not Given - Exam General: Reports: Alert, Oriented HEENT: Reports: Pupils Equal, Pupils Reactive, Mucous Membr. Moist/[place] Neck: Reports: Supple, Trachea Midline Lungs: Reports: Clear to Auscultation, Normal Respiratory Effort Cardiovascular: Reports: Regular Rate, Regular Rhythm GI/Abdominal Exam: Normal Bowel Sounds, Soft, Non-Tender, No Distention Extremities: Normal Inspection, Non-Tender, No Pedal Edema Skin: Reports: Warm, Dry, Intact Neurological: Reports: No New Focal Deficit Psy/Mental Status: Reports: Alert, Normal Affect, Normal Mood
[2018-11-28 16:17] VITALS: BP 116/59
== END 2018-11-28 16:15 | disposition home or self-care (01) | DRG 392 ==
LOC: DL.ED 21:03 → DL.MS 23:55
PROVIDERS: ADMIT Internal Medicine; ATTEND Internal Medicine
DX: K57.92 Diverticulitis of intestine, part unspecified, without perforation or abscess without bleeding (principal); N17.9 Acute kidney failure, unspecified; I25.10 Atherosclerotic heart disease of native coronary artery without angina pectoris; H91.90 Unspecified hearing loss, unspecified ear; H54.7 Unspecified visual loss; F41.9 Anxiety disorder, unspecified; E78.00 Pure hypercholesterolemia, unspecified; I12.9 Hypertensive chronic kidney disease with stage 1 through stage 4 chronic kidney disease, or unspecified chronic kidney disease; E78.5 Hyperlipidemia, unspecified; M19.91 Primary osteoarthritis, unspecified site; K21.9 Gastro-esophageal reflux disease without esophagitis; Z85.46 Personal history of malignant neoplasm of prostate; Z90.5 Acquired absence of kidney; Z88.6 Allergy status to analgesic agent; Z88.8 Allergy status to other drugs, medicaments and biological substances; Z79.82 Long term (current) use of aspirin; Z95.5 Presence of coronary angioplasty implant and graft; I25.2 Old myocardial infarction; Z79.899 Other long term (current) drug therapy; Z85.828 Personal history of other malignant neoplasm of skin; Z85.528 Personal history of other malignant neoplasm of kidney
CPT/HCPCS: 36415; 74018; 74176; 80048; 80053; 82150; 83690; 85025; 96374; 96376; 99284; 99285-25; A9270-GY; J0696; J1644; J3010; J3490; J7030; J7050

== ENCOUNTER 2018-12-12 08:34 | Day surgery (SDC) | payer MEDICARE, OTHER ==
[~2018-12-12 08:34] MED LIST: Acetaminophen 325 MG Tab PO PRN; Cataract Ophth Solution EYELF ONE; Moxifloxacin 0.5% Ophth Soln 3 ML Bottle EYELF ONE; Ondansetron 4 MG/2 ML SDV IVPUSH PRN; Phenylephrine 10% Ophth Soln 5 ML Bot EYELF ONE; Phenylephrine 10% Ophth Soln 5 ML Bot EYELF PRN; Povidone-Iodine 5% Sterile Ophth Soln 30 ML Bottle EYELF ONE; Proparacaine 0.5% Ophth Soln 15 ML Bottle EYELF ONE; Sodium Chloride 0.9% 10 ML Syringe FLUSH PRN; Timolol Maleate 0.5% Ophth Soln 5 ML Bottle EYELF ONE
[2018-12-12] MEDS ORDERED: Povidone-Iodine 5% Sterile Ophth Soln 30 ML Bottle EYELF ONE (09:55)
[2018-12-12] MEDS ORDERED: Tetracaine HCl/PF 0.5% 4 ML Bottle EYELF ONE (09:55)
[2018-12-12] MEDS ORDERED: Apraclonidine 0.5% Ophth Soln 5 ML Bot EYELF ONE (09:56)
[2018-12-12] MEDS ORDERED: Lidocaine 1% 30 ML SDV ONE (09:56)
[2018-12-12] MEDS ORDERED: Dexamethasone/Neomycin/Polymyxin B Ophth Oint 3.5 GM Tube EYELF ONE (09:57)
[2018-12-12] MEDS ORDERED: Diclofenac Sodium 0.1% Ophth Soln 5 ML Bottle EYELF ONE (09:57)
[2018-12-12] MEDS ORDERED: Balanced Salt Solution Ophth Irrig 500 ML Bottle IOCULAR ONE (09:58)
[2018-12-12] MEDS ORDERED: Chondroitin Sulfate/Hyaluronate Sodium Ophth Inj 0.75 ML Syringe EYELF ONE (09:58)
[2018-12-12] MEDS ORDERED: Vancomycin 500 MG SDV EYELF ONE (09:59)
[2018-12-12 10:30] VITALS: BP 128/60
--- NOTE | 2018-12-12 17:21 | OR ---
DATE: 12/12/2018 PREOPERATIVE DIAGNOSIS: Visually significant mixed cataract, left eye. POSTOPERATIVE DIAGNOSIS: Visually significant mixed cataract, left eye. PROCEDURE: Extracapsular cataract extraction with intraocular lens implant, left eye. ANESTHESIA: Topical/local MAC. COMPLICATIONS: None. INDICATION: Mr. Waters was seen in the clinic. He is unhappy with his vision, difficulty seeing at night. 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 He also has difficulty with bright lights. Examination reveals visually significant cataract. I explained options, offered surgery, and explained risks preoperatively including the potential for infection, retinal detachment, loss of vision amongst others. We discussed implant options. He has requested surgery with a monofocal implant. He is comfortable wearing spectacle correction following surgery if necessary. OPERATIVE DESCRIPTION: After informed consent was obtained and the risks, benefits, and alternatives were explained, the patient was brought to the operative suite and topical anesthesia was administered. The patient was then prepped and draped in the sterile fashion and attention was placed on the left eye. A sterile lid speculum was placed into the left eye to allow operative exposure. A full-thickness paracentesis was made in the temporal portion of the operative eye. Preservative-free lidocaine 0.1 mL was injected into the anterior chamber followed by viscoelastic. A full-thickness corneal incision was then made into the anterior chamber. A bent needle cystotome was used to create a small paulette in the anterior capsule. The capsulorrhexis forceps was then used to create a 360-degree curvilinear capsulorrhexis. The nucleus was then removed using a phacoemulsification handpiece and the remaining cortical material was then removed with irrigation and aspiration handpiece. Following removal of the cortical material, the capsular bag was then inspected and noted to be free of any holes or tears. Viscoelastic was then injected into the capsular bag and the intraocular lens was inserted into the capsular bag. The viscoelastic material was then removed from both the anterior and posterior chambers and from behind the IOL. The lens and capsular bag were then reinspected. The IOL was well centered and the capsular bag intact. The wound and paracentesis sites were inspected and hydrated with balanced saline solution. Both were found to be self- sealing. The intraocular pressure was assessed digitally and found to be within normal range. A good red reflex was noted at the completion of the procedure. No complications occurred during the operation. At the completion of the procedure, Efra, Voltaren, and Iopidine drops were placed into the operative eye. A sterile eye shield was placed over the operative eye and the patient was transported to the postoperative recovery area having tolerated the procedure well. Postoperative instructions were given along with a postoperative appointment. The patient was advised to call with any questions or concerns. [facility] /[id number]
== END 2018-12-12 11:07 | disposition home or self-care (01) ==
LOC: DL.SDS 08:34
PROVIDERS: ATTEND Ophthalmology
DX: H26.8 Other specified cataract (principal); I25.10 Atherosclerotic heart disease of native coronary artery without angina pectoris; I25.2 Old myocardial infarction; I12.9 Hypertensive chronic kidney disease with stage 1 through stage 4 chronic kidney disease, or unspecified chronic kidney disease; N18.3 Chronic kidney disease, stage 3 (moderate); E78.5 Hyperlipidemia, unspecified; K21.9 Gastro-esophageal reflux disease without esophagitis; C61 Malignant neoplasm of prostate; Z88.5 Allergy status to narcotic agent; Z88.8 Allergy status to other drugs, medicaments and biological substances; Z95.5 Presence of coronary angioplasty implant and graft; Z79.82 Long term (current) use of aspirin; Z79.02 Long term (current) use of antithrombotics/antiplatelets; Z79.899 Other long term (current) drug therapy
CPT/HCPCS: 00140; 66984; A9270; C1780; J2001; J3370

== ENCOUNTER 2018-12-19 08:47 | Day surgery (SDC) | payer MEDICARE, OTHER ==
[~2018-12-19 08:47] MED LIST changes: -Acetaminophen 325 MG Tab PO PRN; -Cataract Ophth Solution EYELF ONE; +Dexamethasone/Tobramycin 0.1-0.3% Ophth Oint 3.5 GM Tube ONE; +Lidocaine 1% 30 ML SDV ONE; -Moxifloxacin 0.5% Ophth Soln 3 ML Bottle EYELF ONE; -Ondansetron 4 MG/2 ML SDV IVPUSH PRN; -Phenylephrine 10% Ophth Soln 5 ML Bot EYELF ONE; -Phenylephrine 10% Ophth Soln 5 ML Bot EYELF PRN; -Povidone-Iodine 5% Sterile Ophth Soln 30 ML Bottle EYELF ONE; -Proparacaine 0.5% Ophth Soln 15 ML Bottle EYELF ONE; -Sodium Chloride 0.9% 10 ML Syringe FLUSH PRN; -Timolol Maleate 0.5% Ophth Soln 5 ML Bottle EYELF ONE
[2018-12-19] MEDS ORDERED: Midazolam 1 MG/ML 2 ML SDV IV ONE (08:48)
[2018-12-19] MEDS ORDERED: Dexamethasone 4 MG/ML SDV IV ONE (08:48)
[2018-12-19] MEDS ORDERED: Sodium Chloride 0.9% 10 ML Syringe IV ONE (08:48)
[2018-12-19] MEDS ORDERED: Povidone-Iodine 5% Sterile Ophth Soln 30 ML Bottle EYERT ONE ×2 (09:00→10:12)
[2018-12-19] MEDS ORDERED: Ondansetron 4 MG/2 ML SDV IVPUSH PRN (09:00)
[2018-12-19] MEDS ORDERED: Sodium Chloride 0.9% 10 ML Syringe FLUSH PRN (09:00)
[2018-12-19] MEDS ORDERED: Moxifloxacin 0.5% Ophth Soln 3 ML Bottle EYERT ONE (09:00)
[2018-12-19] MEDS ORDERED: Phenylephrine 10% Ophth Soln 5 ML Bot EYERT ONE (09:00)
[2018-12-19] MEDS ORDERED: Proparacaine 0.5% Ophth Soln 15 ML Bottle EYERT ONE (09:00)
[2018-12-19] MEDS ORDERED: Acetaminophen 325 MG Tab PO PRN (09:00)
[2018-12-19] MEDS ORDERED: Timolol Maleate 0.5% Ophth Soln 5 ML Bottle EYERT ONE (09:00)
[2018-12-19] MEDS ORDERED: Cataract Ophth Solution EYERT ONE (09:00)
[2018-12-19] MEDS ORDERED: Phenylephrine 10% Ophth Soln 5 ML Bot EYERT PRN (09:00)
[2018-12-19] MEDS ORDERED: Tetracaine HCl/PF 0.5% 4 ML Bottle EYERT ONE (10:12)
[2018-12-19] MEDS ORDERED: Diclofenac Sodium 0.1% Ophth Soln 5 ML Bottle EYERT ONE (10:12)
[2018-12-19] MEDS ORDERED: Lidocaine 1% 30 ML SDV ONE (10:12)
[2018-12-19] MEDS ORDERED: Dexamethasone/Neomycin/Polymyxin B Ophth Oint 3.5 GM Tube EYERT ONE (10:13)
[2018-12-19] MEDS ORDERED: Apraclonidine 0.5% Ophth Soln 5 ML Bot EYERT ONE (10:13)
[2018-12-19] MEDS ORDERED: Vancomycin 500 MG SDV EYERT ONE (10:13)
[2018-12-19] MEDS ORDERED: Balanced Salt Solution Ophth Irrig 500 ML Bottle IOCULAR ONE (10:14)
[2018-12-19] MEDS ORDERED: Chondroitin Sulfate/Hyaluronate Sodium Ophth Inj 0.75 ML Syringe EYERT ONE (10:14)
[2018-12-19 14:58] VITALS: BP 134/60; PULSE 56
--- NOTE | 2018-12-19 17:16 | OR ---
DATE: 12/19/2018 PREOPERATIVE DIAGNOSIS: Visually significant mixed cataract, right eye. POSTOPERATIVE DIAGNOSIS: Visually significant mixed cataract, right eye. PROCEDURE: Extracapsular cataract extraction with intraocular lens implant, right eye. ANESTHESIA: Topical/local MAC. COMPLICATIONS: None. INDICATION: Mr. Waters was seen in the clinic. He is unhappy with his vision and he has noticed a slow progressive change. His clinical examination reveals visually significant cataract. I explained options and offered cataract surgery and I explained risks including, but not limited to, infection, retinal detachment, loss of vision, need for additional surgery amongst others. We discussed implant options. He has requested a monofocal implant targeting ametropia to mild myopia. He voiced an understanding with respect to risks and wished to proceed, OPERATIVE DESCRIPTION: After informed consent was obtained and the risks, benefits, and alternatives were explained, the patient was brought to the operative suite and topical anesthesia was administered. The patient was then prepped and draped in the sterile fashion and attention was placed on the right eye. A sterile lid speculum was placed into the right eye to allow operative exposure. A full-thickness paracentesis was made in the temporal portion of the operative eye. Preservative-free lidocaine 0.1 mL was injected into the anterior chamber followed by viscoelastic. A full-thickness corneal incision was then made into the anterior chamber. A bent needle cystotome was used to create a small paulette in the anterior capsule. The capsulorrhexis forceps was then used to create a 360-degree curvilinear capsulorrhexis. The nucleus was then removed using a phacoemulsification handpiece and the remaining cortical material was then removed with irrigation and aspiration handpiece. Following removal of the cortical material, the capsular bag was then inspected and noted to be free of any holes or tears. Viscoelastic was then injected into the capsular bag and the intraocular lens was inserted into the capsular bag. The viscoelastic material was then removed from both the anterior and posterior chambers and from behind the IOL. The lens and capsular bag were then reinspected. The IOL was well centered and the capsular bag intact. The wound and paracentesis sites were inspected and hydrated with balanced saline solution. Both were found to be self-sealing. The intraocular pressure was assessed digitally and found to be within normal range. A good red reflex was noted at the completion of the procedure. No complications occurred during the operation. At the completion of the procedure, Maxitrol, Voltaren, and Iopidine drops were placed into the operative eye. A sterile eye shield was placed over the operative eye and the patient was transported to the postoperative recovery area having tolerated the procedure well. Postoperative instructions were given along with a postoperative appointment. The patient was advised to call with any questions or concerns. [facility] /[id number]
== END 2018-12-19 11:21 | disposition home or self-care (01) ==
LOC: DL.SDS 08:47
PROVIDERS: ATTEND Ophthalmology
DX: H25.811 Combined forms of age-related cataract, right eye (principal); D64.9 Anemia, unspecified; I10 Essential (primary) hypertension; E78.5 Hyperlipidemia, unspecified; K21.9 Gastro-esophageal reflux disease without esophagitis; Z96.1 Presence of intraocular lens; Z88.5 Allergy status to narcotic agent; Z88.8 Allergy status to other drugs, medicaments and biological substances; Z95.5 Presence of coronary angioplasty implant and graft
CPT/HCPCS: 00142; 66984; A9270; C1780; J1100; J2001; J2250; J3370; V2632

== ENCOUNTER 2019-01-10 06:59 | Day surgery (SDC) | payer MEDICARE, OTHER ==
[~2019-01-10 06:59] MED LIST changes: -Dexamethasone/Tobramycin 0.1-0.3% Ophth Oint 3.5 GM Tube ONE; +Dextrose 5%-0.45% NaCl 1,000 ML IV SCH; -Lidocaine 1% 30 ML SDV ONE; +Midazolam 1 MG/ML 2 ML SDV ONE; +Sodium Chloride 0.9% 10 ML Syringe FLUSH PRN; +fentaNYL 100 MCG/2 ML SDV ONE
[2019-01-10] MEDS ORDERED: Midazolam 1 MG/ML 2 ML SDV IV ONE ×7 (07:00→08:33)
[2019-01-10] MEDS ORDERED: fentaNYL 100 MCG/2 ML SDV IV ONE ×3 (07:00→08:22)
[2019-01-10 12:27] VITALS: BP 149/61; PULSE 45
--- NOTE | 2019-01-10 14:57 | OR ---
DATE: 01/10/2019 PROCEDURE PERFORMED: Total colonoscopy. INSTRUMENT USED: PCF-H190DL Olympus video colonoscope. PREMEDICATIONS: Fentanyl 100 mcg intravenous, Versed 4 mg intravenous. Nasal O2 cannula. The procedure was done under pulse oximetry, BP recording, and maintenance data analyst. INDICATION: The patient with recent left-sided abdominal pain, treated for subacute colonic diverticulitis, also having chronic constipation, unexplained and not responsive to medical measures. Colonoscopic examination is done for detection of any polypoid lesions and removal, endoscopic hemostasis therapy if needed. DESCRIPTION OF PROCEDURE: Initial rectal exam was unremarkable. Rigid anoscopy was normal. The colonoscope was passed with ease. Numerous wide-mouth diverticula were noted in the distal left colon along with deformity. The scope was passed with ease to the ileocecal area, photographs were taken of the normal- appearing cecum, identified by double-bulged ileocecal folds. No bleeding was noted from any of the visualized areas at the commencement of the examination. The bowel preparation was found to be adequate, [place] scale 2. No stricture. No vascular ectasia. No large isolated ulcerations seen. No evidence of diffuse inflammatory bowel disease in the form of friability, contact bleeding, or ulcerations. No polyp or tumor mass identified. Probing the proximal sides of folds and flexures using adequate distention and clearing up the stool material, withdrawal of the scope was made, cecum to rectum, time over 6 minutes. No bleeding was noted from any of the visualized areas at the completion of the examination. IMPRESSION: Diverticulosis. The patient tolerated the procedure well. [facility] /[id number]
== END 2019-01-10 10:45 | disposition home or self-care (01) ==
LOC: DL.ENDO 06:59
PROVIDERS: ATTEND Internal Medicine Gastroenterology
DX: K57.30 Diverticulosis of large intestine without perforation or abscess without bleeding (principal); I12.9 Hypertensive chronic kidney disease with stage 1 through stage 4 chronic kidney disease, or unspecified chronic kidney disease; N18.3 Chronic kidney disease, stage 3 (moderate); D63.1 Anemia in chronic kidney disease; F41.1 Generalized anxiety disorder; H91.90 Unspecified hearing loss, unspecified ear; E78.5 Hyperlipidemia, unspecified; R80.9 Proteinuria, unspecified; I21.4 Non-ST elevation (NSTEMI) myocardial infarction; K21.9 Gastro-esophageal reflux disease without esophagitis; N39.41 Urge incontinence; L57.0 Actinic keratosis; Z85.46 Personal history of malignant neoplasm of prostate; Z85.828 Personal history of other malignant neoplasm of skin; Z88.5 Allergy status to narcotic agent; Z88.8 Allergy status to other drugs, medicaments and biological substances; Z79.02 Long term (current) use of antithrombotics/antiplatelets; Z79.82 Long term (current) use of aspirin; Z79.899 Other long term (current) drug therapy
CPT/HCPCS: 45378; J2250; J3010; J7042

== ENCOUNTER 2019-12-11 22:15 | Emergency (ER) | payer MEDICARE, OTHER ==
[2019-12-11] MEDS ORDERED: Sodium Chloride 0.9% 10 ML Syringe FLUSH PRN (22:26)
--- NOTE | 2019-12-11 22:28 | EDM.PDOC ---
ED HPI GENERAL MEDICAL PROBLEM - General Stated Complaint: DIZZY, HIGH BLOOK PRESSURE Time Seen by Provider: 12/11/19 22:27 Source of Information: Reports: Patient, Family, RN, RN Notes Reviewed - History of Present Illness INITIAL COMMENTS - FREE TEXT/NARRATIVE: patient presents to the ER with complaint of dizziness which began about 9 or 9: 30 PM this evening. Patient states he bent over to pick something up and began feeling very dizzy. Afterwards he was unable to stand or ambulate to the bathroom on his own, feeling very weak and dizzy. Patient states at that time he took his own blood pressure a few times with the highest being 186/89 and 60 heart rate. States his blood pressure is normally in the 130s over 160s. Patient states he does take antihypertensives, which he has taken today. Patient states history of renal cancer with removal of the right kidney approximately 30 years ago. Patient also reports history of non-STEMI and stent placement about 4 years ago. Patient admits to coronary artery disease or kidney disease, hypertension. Denies stroke in the past. Patient denies any other symptoms including chest pain, shortness of breath, recent illness, cough , nausea, vomiting, diarrhea, fever, chills, urinary symptoms including frequency, urgency, burning with urination, foul odor to urine. Patient states he does have some incontinence for which he wears a brief which occurred after prostate cancer. Patient states the dizziness has improved while laying back in the bed in the ER. Patient states he takes Lasix once weekly, and has not taken it for about one week. Onset: Today, Sudden - Related Data Allergies Allergy/AdvReac Type Severity Reaction Status Date / Time codeine Allergy Hallucinati Verified 12/19/18 09:10 ons hydralazine Allergy Headache Verified 12/19/18 09:10 lansoprazole [From Prevacid] Allergy Rash Verified 12/19/18 09:10 morphine Allergy Cannot Verified 12/19/18 09:10 Remember Home Meds: Home Meds Calcium Carb, Citrate/Vit D3 [Calcium + D3 ER Tablet] 1 tab PO BID 03/22/16 [ History] Furosemide [Lasix] 20 mg PO ASDIRECTED 03/22/16 [History] Clopidogrel Bisulfate [Clopidogrel] 75 mg PO DAILY 05/23/16 [History] Nitroglycerin [IJP: Nitroglycerin] 1 tab SL ASDIRECTED PRN 05/23/16 [History] Aspirin 81 mg PO DAILY 09/15/16 [History] Acetaminophen 1,000 mg PO Q6H PRN 11/26/18 [History] Esomeprazole Magnesium 20 mg PO BID 11/26/18 [History] Isosorbide Mononitrate [Isosorbide Mononitrate ER] 90 mg PO BID 11/27/18 [ History] Losartan Potassium 75 mg PO BID 11/27/18 [History] NIFEdipine [Nifedipine ER] 30 mg PO DAILY 11/27/18 [History] Acetaminophen [Pain Reliever] 1,000 mg PO Q6HR PRN 12/11/19 [History] Rosuvastatin Calcium 20 mg PO DAILY 12/11/19 [History] Ubidecarenone [Coenzyme Q10] 100 mg PO DAILY 12/11/19 [History] Past Medical History HEENT History: Reports: Allergic Rhinitis, Cataract, Hard of Hearing, Impaired Vision Cardiovascular History: Reports: CAD, High Cholesterol, Hypertension, [place], Stents , Other (See Below) Other Cardiovascular History: varicosities Gastrointestinal History: Reports: GERD, Other (See Below) Other Gastrointestinal History: subacute diverticulitis Genitourinary History: Reports: Renal Disease, Other (See Below) Other Genitourinary History: proteinuria Musculoskeletal History: Reports: Arthritis Neurological History: Reports: None Psychiatric History: Reports: Anxiety Endocrine/Metabolic History: Reports: None Hematologic History: Reports: None Immunologic History: Reports: None Oncologic (Cancer) History: Reports: Prostate, Renal Other Oncologic History: skin Dermatologic History: Reports: None - Infectious Disease History Infectious Disease History: Reports: None - Past Surgical History Female Surgical History: Social & Family History - Family History Family Medical History: Noncontributory - Caffeine Use Caffeine Use: Reports: None ED ROS GENERAL - Review of Systems Review Of Systems: Comprehensive ROS is negative, except as noted in HPI. ED EXAM, GENERAL - Physical Exam Exam: See Below Exam Limited By: No Limitations General Appearance: Alert, WD/WN, No Apparent Distress Eye Exam: Bilateral Eye: EOMI Ears: Normal External Exam, Hearing Grossly Normal, Hearing Loss, Other ( hearing aids) Nose: Normal Inspection Throat/Mouth: Normal Inspection, Normal Voice, No Airway Compromise Head: Atraumatic, Normocephalic Neck: Normal Inspection, Supple, Non-Tender, Full Range of Motion Respiratory/Chest: No Respiratory Distress, Lungs Clear, No Accessory Muscle Use , Chest Non-Tender, Decreased Breath Sounds Cardiovascular: Normal Peripheral Pulses, Regular Rate, Rhythm, No Edema, No Gallop, No JVD, No Murmur, No Rub Peripheral Pulses: 2+: Radial (L), Radial (R) GI/Abdominal: Normal Bowel Sounds, Soft, Non-Tender (Male) Exam: Deferred Rectal (Males) Exam: Deferred Back Exam: Normal Inspection, Full Range of Motion, NT Extremities: Normal Inspection, Normal Range of Motion, Non-Tender, Normal Capillary Refill, Other (+1 lower right leg edema) Neurological: Alert, Oriented, CN II-XII Intact, Normal Cognition, Normal Gait, Normal Reflexes, No Motor/Sensory Deficits Psychiatric: Normal Affect, Normal Mood Skin Exam: Warm, Dry, Intact, Normal Color, No Rash Lymphatic: No Adenopathy Course - Vital Signs Last Recorded V/S: Last Vital Signs Temp 98.1 F 12/11/19 22:20 Pulse 52 L 12/11/19 22:20 Resp 16 12/11/19 22:20 BP 190/64 H 12/11/19 22:20 Pulse Ox 100 12/11/19 22:20 Orthostatic Blood Pressure [ 171/78 Standing] Orthostatic Blood Pressure [ 176/79 Sitting] Orthostatic Blood Pressure [ 178/66 Supine] - Orders/Labs/Meds Orders: Active Orders 24 hr Category Date Time Status EKG Documentation Completion [RC] STAT Care 12/11/19 22:27 Active Peripheral IV Care [RC] . DIRECTED Care 12/11/19 22:27 Active Chest 1V Frontal [CR] Stat Exams 12/11/19 22:27 Taken Heparin Sodium/0.45% NaCl [Heparin 25,000 Units in 1/2 Med 12/11/19 23:15 Ordered NS 500 ML] 25,000 units in 500 ml IV TITRATE Sodium Chloride 0.9% [Saline Flush] Med 12/11/19 22:26 Active 10 ml FLUSH ASDIRECTED PRN Peripheral IV Insertion Adult [OM.PC] Stat Oth 12/11/19 22:27 Ordered Medication Orders Heparin Sodium/Sodium Chloride (Heparin 25,000 Units In 1/2 Ns 500 Ml) 25,000 units in 500 mls @ 17.984 mls/hr IV TITRATE JOSE; Protocol Last Admin: 12/11/19 23:23 Dose: 12 units/kg/hr, 17.984 mls/hr Sodium Chloride (Saline Flush) 10 ml FLUSH ASDIRECTED PRN PRN Reason: Keep Vein Open Last Admin: 12/11/19 22:35 Dose: 10 ml Labs: Laboratory Tests 12/11/19 12/11/19 12/11/19 Range/Units 22:33 22:33 22:33 WBC 4.7 L (5.0-10.0) 10^3/uL RBC 3.87 L (4.6-6.2) 10^6/uL Hgb 12.4 L (14.0-18.0) g/dL Hct 35.6 L (40.0-54.0) % MCV 92.0 (80-100) fL MCH 32.0 (27.0-34.0) pg MCHC 34.8 (33.0-35.0) g/dL Plt Count 186 (150-450) 10^3/uL Neut % (Auto) 50.7 (42.2-75.2) % Lymph % (Auto) 33.9 (20.5-50.1) % [place] % (Auto) 11.6 H (2-8) % Eos % (Auto) 3.6 H (1.0-3.0) % Baso % (Auto) 0.2 (0.0-1.0) % PT 10.0 (9.0-12.0) SEC INR 1.1 (0.9-1.2) Sodium 143 (136-145) mmol/L Potassium 3.9 (3.5-5.1) mmol/L Chloride 106 (98-107) mmol/L Carbon Dioxide 28 (21-32) mmol/L Anion Gap 12.9 (7-13) mEq/L BUN 41 H (7-18) mg/dL Creatinine 2.39 H (0.70-1.30) mg/dL Est Cr Clr Drug Dosing 21.13 mL/min Estimated GFR (MDRD) 26 BUN/Creatinine Ratio 17.2 (No establ ref range) Glucose 94 (74-99) mg/dL Calcium 8.9 (8.5-10.1) mg/dL Total Bilirubin 0.4 (0.2-1.0) mg/dL AST 24 (15-37) U/L ALT 24 (16-63) U/L Alkaline Phosphatase 67 (46-116) U/L Troponin I 0.117 H* (0.000-0.056) ng/mL B-Natriuretic Peptide 47 (0-100) pg/ml Total Protein 7.3 (6.4-8.2) g/dL Albumin 4.1 (3.4-5.0) g/dL Globulin 3.2 Albumin/Globulin Ratio 1.3 Urine Color (YELLOW) Urine Appearance (CLEAR) Urine pH (5.0-9.0) Ur Specific Marcell (1.005-1.030) Urine Protein (NEGATIVE) Urine Glucose (UA) (NEGATIVE) Urine Ketones (NEGATIVE) Urine Occult Blood (NEGATIVE) Urine Nitrite (NEGATIVE) Urine Bilirubin (NEGATIVE) Urine Urobilinogen (0.2-1.0) mg/dL Ur Leukocyte Esterase (NEGATIVE) Urine RBC /HPF Urine WBC (0-5/HPF) /HPF Ur Epithelial Cells (NOT SEEN) /HPF Urine Bacteria (0-FEW/HPF) /HPF Urine Mucus (NOT SEEN) /LPF / Range/Units 23:04 WBC (5.0-10.0) 10^3/uL RBC (4.6-6.2) 10^6/uL Hgb (14.0-18.0) g/dL Hct (40.0-54.0) % MCV (80-100) fL MCH (27.0-34.0) pg MCHC (33.0-35.0) g/dL Plt Count (150-450) 10^3/uL Neut % (Auto) (42.2-75.2) % Lymph % (Auto) (20.5-50.1) % [place] % (Auto) (2-8) % Eos % (Auto) (1.0-3.0) % Baso % (Auto) (0.0-1.0) % PT (9.0-12.0) SEC INR (0.9-1.2) Sodium (136-145) mmol/L Potassium (3.5-5.1) mmol/L Chloride (98-107) mmol/L Carbon Dioxide (21-32) mmol/L Anion Gap (7-13) mEq/L BUN (7-18) mg/dL Creatinine (0.70-1.30) mg/dL Est Cr Clr Drug Dosing mL/min Estimated GFR (MDRD) BUN/Creatinine Ratio (No establ ref range) Glucose (74-99) mg/dL Calcium (8.5-10.1) mg/dL Total Bilirubin (0.2-1.0) mg/dL AST (15-37) U/L ALT (16-63) U/L Alkaline Phosphatase (46-116) U/L Troponin I (0.000-0.056) ng/mL B-Natriuretic Peptide (0-100) pg/ml Total Protein (6.4-8.2) g/dL Albumin (3.4-5.0) g/dL Globulin Albumin/Globulin Ratio Urine Color Yellow (YELLOW) Urine Appearance Slightly cloudy (CLEAR) Urine pH 7.0 (5.0-9.0) Ur Specific Marcell >= 1.030 (1.005-1.030) Urine Protein >=300 H (NEGATIVE) Urine Glucose (UA) Negative (NEGATIVE) Urine Ketones Negative (NEGATIVE) Urine Occult Blood Trace-intact H (NEGATIVE) Urine Nitrite Negative (NEGATIVE) Urine Bilirubin Negative (NEGATIVE) Urine Urobilinogen 0.2 (0.2-1.0) mg/dL Ur Leukocyte Esterase Negative (NEGATIVE) Urine RBC 5-10 H /HPF Urine WBC 0-5 (0-5/HPF) /HPF Ur Epithelial Cells Rare (NOT SEEN) /HPF Urine Bacteria Rare (0-FEW/HPF) /HPF Urine Mucus Rare (NOT SEEN) /LPF Meds: Medications Generic Name Dose Route Start Last Admin Trade Name Freq PRN Reason Stop Dose Admin Heparin Sodium/Sodium Chloride 25,000 units in 500 mls @ 17.984 mls/hr 23:15 12/11/19 23:23 Heparin 25,000 Units In 1/2 Ns 500 Ml IV 12 units/kg/hr TITRATE JOSE 17.984 mls/hr Administration Protocol 12 UNITS/KG/HR Sodium Chloride 10 ml 12/11/19 22:26 12/11/19 22:35 Saline Flush FLUSH 10 ml ASDIRECTED PRN Administration Keep Vein Open Discontinued Medications Generic Name Dose Route Start Last Admin Trade Name Freq PRN Reason Stop Dose Admin Heparin Sodium (Porcine) 4,000 units 12/11/19 23:17 12/11/19 23:23 Heparin Sodium IVPUSH 12/11/19 23:18 4,000 units .BOLUS ONE Administration - Radiology Interpretation Free Text/Narrative:: Chest Xray: FINDINGS: Lungs: Unremarkable. No consolidation. Pleural space: Unremarkable. No pleural effusion. No pneumothorax. Heart/Mediastinum: Unremarkable. No cardiomegaly. Bones/joints: Unremarkable. IMPRESSION: No acute findings. Thank you for allowing us to participate in the care of your patient. Dictated and Authenticated by: Jacquie Miller MD 12/11/2019 10:50 PM Central Time ([place] & [place]) See rad report - Re-Assessments/Exams Free Text/Narrative Re-Assessment/Exam: 12/11/19 23:42 Discussed patient case with Dr. Neri who agreed to accept the patient for transfer to [facility] in [place]. Departure - Departure Time of Disposition: 23:36 Disposition: DC/Tfer to [facility] Reason for Transfer *Q: Other Condition: Fair Clinical Impression: Non-STEMI (non-ST elevated myocardial infarction) Forms: ED Department Discharge, Interfacility Transfer [facility] Sepsis Event Note - Focused Exam Vital Signs: Vital Signs Temp Pulse Resp BP Pulse Ox 12/11/19 22:20 98.1 F 52 L 16 190/64 H 100 Date Exam was Performed: 12/11/19 Time Exam was Performed: 23:36 - My Orders Last 24 Hours: My Active Orders 12/11/19 22:26 Sodium Chloride 0.9% [Saline Flush] 10 ml FLUSH ASDIRECTED PRN 12/11/19 22:27 EKG Documentation Completion [RC] STAT Peripheral IV Care [RC] . DIRECTED Chest 1V Frontal [CR] Stat Peripheral IV Insertion Adult [OM.PC] Stat 12/11/19 23:15 Heparin Sodium/0.45% NaCl [Heparin 25,000 Units in 1/2 NS 500 ML] 25,000 units in 500 ml IV TITRATE - Assessment/Plan Last 24 Hours: My Active Orders 12/11/19 22:26 Sodium Chloride 0.9% [Saline Flush] 10 ml FLUSH ASDIRECTED PRN 12/11/19 22:27 EKG Documentation Completion [RC] STAT Peripheral IV Care [RC] . DIRECTED Chest 1V Frontal [CR] Stat Peripheral IV Insertion Adult [OM.PC] Stat 12/11/19 23:15 Heparin Sodium/0.45% NaCl [Heparin 25,000 Units in 1/2 NS 500 ML] 25,000 units in 500 ml IV TITRATE
[2019-12-11 22:54] VITALS: BP 190/64; PULSE 52
[2019-12-11 23:00] LABS: ANION GAP 12.9 mEq/L (7-13)
[2019-12-11] MEDS ORDERED: Heparin Sodium/0.45% NaCl 25,000 UNITS/500 ML BAG IV SCH (23:15)
[2019-12-11] MEDS ORDERED: Heparin Sodium 5,000 Units/ML Vial IVPUSH ONE (23:17)
== END 2019-12-11 23:38 ==
LOC: DL.ED 22:15
DX: I21.4 Non-ST elevation (NSTEMI) myocardial infarction (principal); I10 Essential (primary) hypertension; I25.10 Atherosclerotic heart disease of native coronary artery without angina pectoris; E78.00 Pure hypercholesterolemia, unspecified; I25.2 Old myocardial infarction; K21.9 Gastro-esophageal reflux disease without esophagitis; F41.9 Anxiety disorder, unspecified; M19.90 Unspecified osteoarthritis, unspecified site; Z88.5 Allergy status to narcotic agent; Z88.8 Allergy status to other drugs, medicaments and biological substances; Z79.02 Long term (current) use of antithrombotics/antiplatelets; Z79.82 Long term (current) use of aspirin; Z79.899 Other long term (current) drug therapy
CPT/HCPCS: 36415; 71045; 80053; 81001; 83880; 84484; 85025; 85610; 93005; 96374; 99285; J1644

== ENCOUNTER 2019-12-14 11:59 | Observation (INO) | payer MEDICARE, OTHER ==
[2019-12-14] MEDS ORDERED: Aspirin 81 MG Tab.Chew PO ONE (12:23)
--- NOTE | 2019-12-14 12:42 | EDM.PDOC ---
ED HPI GENERAL MEDICAL PROBLEM - General Chief Complaint: Chest Pain Stated Complaint: chest pains Time Seen by Provider: 12/14/19 12:28 Source of Information: Reports: Patient History Limitations: Reports: No Limitations - History of Present Illness INITIAL COMMENTS - FREE TEXT/NARRATIVE: This 84 yo male patient reports to the ED due to chest pain. The patient reports he was vacuuming this morning at his home when he started to experience left sided chest pain, radiating to his left posterior shoulder and left arm. The patient was seen in the ED on 12/11/19 and sent to [facility] in [place] due to a NSTEMI. The patient reports he was discharged from [facility] on 12/12/19 after his blood pressure was under control and advised him that it was not his heart. The patient did take his prescribed Nitro twice while at home. The patient reports his pain went from a 9/10 to a 2/10. Onset: Today Onset Date: 12/14/19 Onset Time: 09:30 Duration: Improving Location: Reports: Chest, Upper Extremity, Left Quality: Reports: Ache, Dull Severity: Moderate Improves with: Reports: Medication Worsens with: Reports: None Context: Reports: Other Associated Symptoms: Reports: Chest Pain Treatments BEAUTY THERAPIST: Reports: Nitroglycerin Left Chest Pain Score (Numeric/FACES): 2 - Related Data Allergies Allergy/AdvReac Type Severity Reaction Status Date / Time codeine Allergy Hallucinati Verified 12/14/19 12:22 ons hydralazine Allergy Headache Verified 12/14/19 12:22 lansoprazole [From Prevacid] Allergy Rash Verified 12/14/19 12:22 morphine Allergy Cannot Verified 12/14/19 12:22 Remember Home Meds: Home Meds Calcium Carb, Citrate/Vit D3 [Calcium + D3 ER Tablet] 1 tab PO BID 03/22/16 [ History] Furosemide [Lasix] 20 mg PO ASDIRECTED 03/22/16 [History] Clopidogrel Bisulfate [Clopidogrel] 75 mg PO DAILY 05/23/16 [History] Nitroglycerin [IJP: Nitroglycerin] 1 tab SL ASDIRECTED PRN 05/23/16 [History] Aspirin 81 mg PO DAILY 09/15/16 [History] Acetaminophen 1,000 mg PO Q6H PRN 11/26/18 [History] Esomeprazole Magnesium 20 mg PO BID 11/26/18 [History] Isosorbide Mononitrate [Isosorbide Mononitrate ER] 90 mg PO BID 11/27/18 [ History] Losartan Potassium 75 mg PO BID 11/27/18 [History] NIFEdipine [Nifedipine ER] 30 mg PO DAILY 11/27/18 [History] Rosuvastatin Calcium 20 mg PO DAILY 12/11/19 [History] Ubidecarenone [Coenzyme Q10] 100 mg PO DAILY 12/11/19 [History] Past Medical History HEENT History: Reports: Allergic Rhinitis, Cataract, Hard of Hearing, Impaired Vision Cardiovascular History: Reports: CAD, High Cholesterol, Hypertension, [place], Stents , Other (See Below) Other Cardiovascular History: varicosities Respiratory History: Reports: None Gastrointestinal History: Reports: GERD, Other (See Below) Other Gastrointestinal History: subacute diverticulitis Genitourinary History: Reports: Renal Disease, Other (See Below) Other Genitourinary History: proteinuria Musculoskeletal History: Reports: Arthritis Neurological History: Reports: None Psychiatric History: Reports: Anxiety Endocrine/Metabolic History: Reports: None Hematologic History: Reports: None Immunologic History: Reports: None Oncologic (Cancer) History: Reports: Prostate, Renal Other Oncologic History: skin Dermatologic History: Reports: None - Infectious Disease History Infectious Disease History: Reports: None - Past Surgical History Head Surgeries/Procedures: Reports: None Social & Family History - Family History Family Medical History: Noncontributory - Tobacco Use Smoking Status *Q: Never Smoker Second Hand Smoke Exposure: No - Caffeine Use Caffeine Use: Reports: Coffee - Recreational Drug Use Recreational Drug Use: No ED ROS GENERAL - Review of Systems Review Of Systems: Comprehensive ROS is negative, except as noted in HPI. ED EXAM, GENERAL - Physical Exam Exam: See Below Exam Limited By: No Limitations General Appearance: Alert, WD/WN, Mild Distress Eye Exam: Bilateral Eye: EOMI, Normal Inspection, PERRL Ears: Normal External Exam, Normal Canal, Hearing Grossly Normal, Normal TMs Nose: Normal Inspection, Normal Mucosa, No Blood Throat/Mouth: Normal Inspection, Normal Lips, Normal Teeth, Normal Gums, Normal Oropharynx, Normal Voice, No Airway Compromise Head: Atraumatic, Normocephalic Neck: Normal Inspection, Supple, Non-Tender, Full Range of Motion Respiratory/Chest: No Respiratory Distress, Lungs Clear, Normal Breath Sounds, No Accessory Muscle Use, Other (left sided chest pain) Cardiovascular: Normal Peripheral Pulses, Regular Rate, Rhythm, No Edema, No Gallop, No JVD, No Murmur, No Rub GI/Abdominal: Normal Bowel Sounds, Soft, Non-Tender, No Organomegaly, No Distention, No Abnormal Bruit, No Mass (Male) Exam: Deferred Rectal (Males) Exam: Deferred Back Exam: Normal Inspection, Full Range of Motion, NT Extremities: Normal Inspection, Normal Range of Motion, Non-Tender, Normal Capillary Refill, No Pedal Edema Neurological: Alert Psychiatric: Normal Affect, Normal Mood Skin Exam: Warm, Dry, Intact, Normal Color, No Rash Lymphatic: No Adenopathy Course - Vital Signs Last Recorded V/S: Last Vital Signs Temp 36.2 C 12/14/19 12:03 Pulse 66 12/14/19 12:03 Resp 16 12/14/19 12:03 BP 146/99 H 12/14/19 12:03 Pulse Ox 99 12/14/19 12:03 - Orders/Labs/Meds Orders: Active Orders 24 hr Category Date Time Status Admission Diagnosis [ADT] Urgent ADT 12/14/19 13:19 Ordered Admission Status [Patient Status] [ADT] Routine ADT 12/14/19 13:19 Ordered EKG Documentation Completion [RC] URGENT Care 12/14/19 12:03 Active Heparin Sodium/0.45% NaCl [Heparin 25,000 Units in 1/2 Med 12/14/19 13:15 Ordered NS 500 ML] 25,000 units in 500 ml IV ONETIME Medication Orders Heparin Sodium/Sodium Chloride (Heparin 25,000 Units In 1/2 Ns 500 Ml) 25,000 units in 500 mls @ 17.745 mls/hr IV ONETIME ONE Stop: 12/15/19 17:25 Last Admin: 12/14/19 13:21 Dose: 12 units/kg/hr, 17.745 mls/hr Labs: Laboratory Tests 12/14/19 12/14/19 12/14/19 Range/Units 12:13 12:13 12:13 WBC 4.9 L (5.0-10.0) 10^3/uL RBC 3.81 L (4.6-6.2) 10^6/uL Hgb 12.3 L (14.0-18.0) g/dL Hct 35.2 L (40.0-54.0) % MCV 92.4 (80-100) fL MCH 32.3 (27.0-34.0) pg MCHC 34.9 (33.0-35.0) g/dL Plt Count 184 (150-450) 10^3/uL Neut % (Auto) 56.0 (42.2-75.2) % Lymph % (Auto) 28.7 (20.5-50.1) % [place] % (Auto) 11.4 H (2-8) % Eos % (Auto) 3.5 H (1.0-3.0) % Baso % (Auto) 0.4 (0.0-1.0) % PT 10.1 (9.0-12.0) SEC INR 1.1 (0.9-1.2) D-Dimer, Quantitative 1860 H (0-400) ng/mL Sodium 143 (136-145) mmol/L Potassium 4.0 (3.5-5.1) mmol/L Chloride 105 (98-107) mmol/L Carbon Dioxide 29 (21-32) mmol/L Anion Gap 13.0 (7-13) mEq/L BUN 39 H (7-18) mg/dL Creatinine 2.49 H (0.70-1.30) mg/dL Est Cr Clr Drug Dosing 21.02 mL/min Estimated GFR (MDRD) 25 BUN/Creatinine Ratio 15.7 (No establ ref range) Glucose 104 H (74-99) mg/dL Calcium 8.8 (8.5-10.1) mg/dL Total Bilirubin 0.6 (0.2-1.0) mg/dL AST 23 (15-37) U/L ALT 23 (16-63) U/L Alkaline Phosphatase 59 (46-116) U/L Troponin I 0.111 H* (0.000-0.056) ng/mL Total Protein 6.9 (6.4-8.2) g/dL Albumin 3.8 (3.4-5.0) g/dL Globulin 3.1 Albumin/Globulin Ratio 1.2 Meds: Medications Generic Name Dose Route Start Last Admin Trade Name Freq PRN Reason Stop Dose Admin Heparin Sodium/Sodium Chloride 25,000 units in 500 mls @ 17.745 mls/hr 13:15 12/14/19 13:21 Heparin 25,000 Units In 1/2 Ns 500 Ml IV 12/15/19 17:25 12 units/kg/hr ONETIME ONE 17.745 mls/hr Administration 12 UNITS/KG/HR Discontinued Medications Generic Name Dose Route Start Last Admin Trade Name Freq PRN Reason Stop Dose Admin Aspirin 324 mg 12/14/19 12:23 12/14/19 12:28 Aspirin PO 12/14/19 12:24 324 mg ONETIME ONE Administration Heparin Sodium (Porcine) 4,000 units 12/14/19 13:14 12/14/19 13:20 Heparin Sodium IVPUSH 12/14/19 13:15 4,000 units .BOLUS ONE Administration Departure - Departure Time of Disposition: 13:22 Disposition: Admitted As Inpatient 66 Condition: Fair Clinical Impression: Unstable angina, Elevated troponin Chest pain Qualifiers: Chest pain type: other chest pain Qualified Code(s): R07.89 - Other chest pain ; R07.8 - Other chest pain Forms: ED Department Discharge Care Plan Goals: Discussed the patient's history, examination, lab, EKG and x-ray results with Dr. Delgadillo. Dr. Delgadillo accepted the patient for continued evaluation and management as a patient here at [facility] in [place]. The patient was given a bolus of heparin and started on a heparin drip while in the ED. Sepsis Event Note - Evaluation Sepsis Screening Result: No Definite Risk - Focused Exam Vital Signs: Vital Signs Temp Pulse Resp BP Pulse Ox 12/14/19 12:03 36.2 C 66 16 146/99 H 99 Date Exam was Performed: 12/14/19 Time Exam was Performed: 13:22 - My Orders Last 24 Hours: My Active Orders 12/14/19 12:03 EKG Documentation Completion [RC] URGENT 12/14/19 13:15 Heparin Sodium/0.45% NaCl [Heparin 25,000 Units in 1/2 NS 500 ML] 25,000 units in 500 ml IV ONETIME 12/14/19 13:19 Admission Diagnosis [ADT] Urgent Admission Status [Patient Status] [ADT] Routine - Assessment/Plan Last 24 Hours: My Active Orders 12/14/19 12:03 EKG Documentation Completion [RC] URGENT 12/14/19 13:15 Heparin Sodium/0.45% NaCl [Heparin 25,000 Units in 1/2 NS 500 ML] 25,000 units in 500 ml IV ONETIME 12/14/19 13:19 Admission Diagnosis [ADT] Urgent Admission Status [Patient Status] [ADT] Routine
[2019-12-14] MEDS ORDERED: Heparin Sodium 5,000 Units/ML Vial IVPUSH ONE (13:14)
[2019-12-14] MEDS ORDERED: Heparin Sodium/0.45% NaCl 25,000 UNITS/500 ML BAG IV ONE (13:15)
[2019-12-14] MEDS ORDERED: Heparin Sodium 5,000 Units/ML Vial IV SCH (13:45)
[2019-12-14] MEDS ORDERED: Acetaminophen 325 MG Tab PO PRN (13:48)
[2019-12-14] MEDS ORDERED: Zolpidem 5 MG Tab PO PRN (13:48)
[2019-12-14] MEDS ORDERED: Sodium Chloride 0.9% 10 ML Syringe FLUSH PRN (13:48)
[2019-12-14] MEDS ORDERED: Ondansetron 4 MG/2 ML SDV IVPUSH PRN (13:48)
--- NOTE | 2019-12-14 14:06 | PCM.HP ---
H&P History of Present Illness - General Date of Service: 12/14/19 Admit Problem/Dx: Admission Diagnosis/Problem Admission Diagnosis/Problem Unstable angina pectoris Source of Information: Patient, Provider (ER), Other (reviewed EPIC from [facility] - last admission ) - History of Present Illness Initial Comments - Free Text/Narative: 84-year-old with a history of nephrectomy for malignancy, coronary artery disease with last stenting about 4 years ago, hypertension, dyslipidemia. Presented with left-sided chest pain radiating to the back and the left arm The patient the was recently in the emergency room when felt lightheaded, was noted to have from troponin elevation by [facility] standards. The patient was noted to have hypertension. Was transferred to [facility]. Was evaluated by cardiology. There his troponins were normal. Cardiology recommended outpatient stress test if return of symptoms. No medication changes were done, it was felt that the uncontrolled hypertension may have played a role in the patient's symptoms The patient has been monitoring blood pressures since discharge. Has been getting 130 to 140 systolic and 60-70 diastolic pressures The patient was vacuuming when developed left-sided chest pain radiating to the back and the left arm. No associated shortness of breath. The patient that to 2 sublingual nitroglycerin and the pain significantly improved. In the emergency room heparin weight-based nomogram was started He was found to have no acute EKG changes, troponin was elevated about the same as it was a few days ago. Left Chest Pain Score (Numeric/FACES): 2 - Related Data Allergies/Adverse Reactions: Allergies Allergy/AdvReac Type Severity Reaction Status Date / Time codeine Allergy Hallucinati Verified 12/14/19 12:22 ons hydralazine Allergy Headache Verified 12/14/19 12:22 lansoprazole [From Prevacid] Allergy Rash Verified 12/14/19 12:22 morphine Allergy Cannot Verified 12/14/19 12:22 Remember Home Medications: Home Meds Calcium Carb, Citrate/Vit D3 [Calcium + D3 ER Tablet] 1 tab PO BID 03/22/16 [ History] Furosemide [Lasix] 20 mg PO ASDIRECTED 03/22/16 [History] Clopidogrel Bisulfate [Clopidogrel] 75 mg PO DAILY 05/23/16 [History] Nitroglycerin [IJP: Nitroglycerin] 1 tab SL ASDIRECTED PRN 05/23/16 [History] Aspirin 81 mg PO DAILY 09/15/16 [History] Acetaminophen 1,000 mg PO Q6H PRN 11/26/18 [History] Esomeprazole Magnesium 20 mg PO BID 11/26/18 [History] Isosorbide Mononitrate [Isosorbide Mononitrate ER] 90 mg PO BID 11/27/18 [ History] Losartan Potassium 75 mg PO BID 11/27/18 [History] NIFEdipine [Nifedipine ER] 30 mg PO DAILY 11/27/18 [History] Rosuvastatin Calcium 20 mg PO DAILY 12/11/19 [History] Ubidecarenone [Coenzyme Q10] 100 mg PO DAILY 12/11/19 [History] Past Medical History HEENT History: Reports: Allergic Rhinitis, Cataract, Hard of Hearing, Impaired Vision Cardiovascular History: Reports: CAD, High Cholesterol, Hypertension, [place], Stents , Other (See Below) Other Cardiovascular History: varicosities Respiratory History: Reports: None Gastrointestinal History: Reports: GERD, Other (See Below) Other Gastrointestinal History: subacute diverticulitis Genitourinary History: Reports: Renal Disease, Other (See Below) Other Genitourinary History: proteinuria Musculoskeletal History: Reports: Arthritis Neurological History: Reports: None Psychiatric History: Reports: Anxiety Endocrine/Metabolic History: Reports: None Hematologic History: Reports: None Immunologic History: Reports: None Oncologic (Cancer) History: Reports: Prostate, Renal Other Oncologic History: skin Dermatologic History: Reports: None - Infectious Disease History Infectious Disease History: Reports: Chicken Pox - Past Surgical History Head Surgeries/Procedures: Reports: None GI Surgical History: Reports: Appendectomy Male Surgical History: Reports: Nephrectomy, Other (See Below) Other Male Surgeries/Procedures: Patient had 1 kidney removed w/precancerous markers Social & Family History - Family History Family Medical History: Noncontributory - Tobacco Use Smoking Status *Q: Never Smoker Second Hand Smoke Exposure: No - Caffeine Use Caffeine Use: Reports: None - Recreational Drug Use Recreational Drug Use: No H&P Review of Systems - Review of Systems: Review Of Systems: See Below General: Denies: Fever, Chills Pulmonary: Denies: Shortness of Breath, Wheezing Cardiovascular: Reports: Chest Pain. Denies: Palpitations, Edema Gastrointestinal: Denies: Abdominal Pain Psychiatric: Denies: Confusion Exam - Exam Exam: See Below - Vital Signs Vital Signs: Last Vital Signs Temp 97.1 F 12/14/19 12:03 Pulse 66 12/14/19 12:03 Resp 16 12/14/19 12:03 BP 146/99 H 12/14/19 12:03 Pulse Ox 99 12/14/19 12:03 Weight: 158 lb 3.2 oz - Exam Quality Assessment: No: Supplemental Oxygen General: Alert, Oriented Neck: Supple Lungs: Clear to Auscultation, Normal Respiratory Effort Cardiovascular: Regular Rate, Regular Rhythm GI/Abdominal Exam: Normal Bowel Sounds, Soft, Non-Tender Extremities: No Pedal Edema - Patient Data Lab Results Last 24 hrs: Laboratory Results - last 24 hr 12/14/19 12/14/19 12/14/19 Range/Units 12:13 12:13 12:13 WBC 4.9 L (5.0-10.0) 10^3/uL RBC 3.81 L (4.6-6.2) 10^6/uL Hgb 12.3 L (14.0-18.0) g/dL Hct 35.2 L (40.0-54.0) % MCV 92.4 (80-100) fL MCH 32.3 (27.0-34.0) pg MCHC 34.9 (33.0-35.0) g/dL Plt Count 184 (150-450) 10^3/uL Neut % (Auto) 56.0 (42.2-75.2) % Lymph % (Auto) 28.7 (20.5-50.1) % [place] % (Auto) 11.4 H (2-8) % Eos % (Auto) 3.5 H (1.0-3.0) % Baso % (Auto) 0.4 (0.0-1.0) % PT 10.1 (9.0-12.0) SEC INR 1.1 (0.9-1.2) D-Dimer, Quantitative 1860 H (0-400) ng/mL Sodium 143 (136-145) mmol/L Potassium 4.0 (3.5-5.1) mmol/L Chloride 105 (98-107) mmol/L Carbon Dioxide 29 (21-32) mmol/L Anion Gap 13.0 (7-13) mEq/L BUN 39 H (7-18) mg/dL Creatinine 2.49 H (0.70-1.30) mg/dL Est Cr Clr Drug Dosing 21.02 mL/min Estimated GFR (MDRD) 25 BUN/Creatinine Ratio 15.7 (No establ ref range) Glucose 104 H (74-99) mg/dL Calcium 8.8 (8.5-10.1) mg/dL Total Bilirubin 0.6 (0.2-1.0) mg/dL AST 23 (15-37) U/L ALT 23 (16-63) U/L Alkaline Phosphatase 59 (46-116) U/L Troponin I 0.111 H* (0.000-0.056) ng/mL Total Protein 6.9 (6.4-8.2) g/dL Albumin 3.8 (3.4-5.0) g/dL Globulin 3.1 Albumin/Globulin Ratio 1.2 Result Diagrams: 12/14/19 12:13 12/14/19 12:13 - Problem List (1) CAD (coronary artery disease) SNOMED Code(s): 32378155 ICD Code: I25.10 - ATHSCL HEART DISEASE OF [place] CORONARY ARTERY W/O ANG PCTRS Status: Acute Current Visit: No Qualifiers: Coronary Disease-Associated Artery/Lesion type: unspecified vessel or lesion type [place] vs. transplanted heart: [place] heart Associated angina: without angina Qualified Code(s): I25.10 - Atherosclerotic heart disease of [place] coronary artery without angina pectoris (2) CKD (chronic kidney disease) SNOMED Code(s): 270693016 ICD Code: N18.9 - CHRONIC KIDNEY DISEASE, UNSPECIFIED Status: Acute Current Visit: No (3) Elevated troponin SNOMED Code(s): 657852412, 784689684, 299322173 ICD Code: R79.89 - OTHER SPECIFIED ABNORMAL FINDINGS OF BLOOD CHEMISTRY Status: Acute Current Visit: No (4) Hyperlipidemia SNOMED Code(s): 96134866 ICD Code: E78.5 - HYPERLIPIDEMIA, UNSPECIFIED Status: Acute Current Visit : No (5) Hypertension SNOMED Code(s): 04989020 ICD Code: I10 - ESSENTIAL (PRIMARY) HYPERTENSION Status: Acute Current Visit: No Onset Date: 09/21/15 (6) Unstable angina SNOMED Code(s): 6761999, 838066844 ICD Code: I20.0 - UNSTABLE ANGINA Status: Acute Current Visit: No Problem List Initiated/Reviewed/Updated: Yes Orders Last 24hrs: Active Orders 24 hr Category Date Time Status Admission Diagnosis [ADT] Urgent ADT 12/14/19 13:19 Ordered Admission Status [Patient Status] [ADT] Routine ADT 12/14/19 13:19 Active Antiembolic Devices [RC] PER UNIT ROUTINE Care 12/14/19 13:50 Ordered EKG Documentation Completion [RC] URGENT Care 12/14/19 12:03 Active Oxygen Therapy [RC] PRN Care 12/14/19 13:49 Ordered Peripheral IV Care [RC] . DIRECTED Care 12/14/19 13:50 Ordered Telemetry Monitoring [Cardiac Monitoring] [RC] . Care 12/14/19 14:00 Ordered DIRECTED Up With Assistance [RC] ASDIRECTED Care 12/14/19 13:48 Ordered VTE/DVT Education [RC] PER UNIT ROUTINE Care 12/14/19 13:49 Ordered Vital Signs [RC] Q4H Care 12/14/19 13:49 Ordered Regular Diet [DIET] Diet 12/14/19 Dinner Ordered BASIC METABOLIC PANEL,BMP [CHEM] AM Lab 12/15/19 05:15 Ordered CBC WITH AUTO DIFF [HEME] AM Lab 12/15/19 05:15 Ordered TROPONIN I [CHEM] AM Lab 12/15/19 05:11 Ordered TROPONIN I [CHEM] Timed Lab 12/14/19 18:00 Ordered Acetaminophen [Tylenol] Med 12/14/19 13:48 Ordered 650 mg PO Q4H PRN Aspirin Med 12/15/19 09:00 Ordered 81 mg PO DAILY Clopidogrel [Plavix] Med 12/15/19 09:00 Ordered 75 mg PO DAILY Esomeprazole Magnesium [Esomeprazole Magnesium] Med 12/14/19 21:00 Ordered 20 mg PO BID Heparin Sodium Med 12/14/19 13:45 Ordered See Protocol IV .PROTOCOL Heparin Sodium/0.45% NaCl [Heparin 25,000 Units in 1/2 Med 12/14/19 13:15 Active NS 500 ML] 25,000 units in 500 ml IV ONETIME Isosorbide Mononitrate [Imdur] Med 12/14/19 21:00 Ordered 90 mg PO BID Losartan [Cozaar] Med 12/15/19 09:00 Ordered 100 mg PO DAILY NIFEdipine [Procardia XL] Med 12/15/19 09:00 Ordered 30 mg PO DAILY Ondansetron [Zofran] Med 12/14/19 13:48 Ordered 4 mg IVPUSH Q4H PRN Rosuvastatin Calcium [Rosuvastatin Calcium] Med 12/15/19 09:00 Ordered 20 mg PO DAILY Sodium Chloride 0.9% [Saline Flush] Med 12/14/19 13:48 Ordered 10 ml FLUSH ASDIRECTED PRN Zolpidem [Ambien] Med 12/14/19 13:48 Ordered 5 mg PO BEDTIME PRN Antiembolic Hose [OM.PC] Per Unit Routine Oth 12/14/19 13:49 Ordered Peripheral IV Insertion Adult [OM.PC] Routine Oth 12/14/19 13:48 Ordered Saline Lock Insert [OM.PC] Routine Oth 12/14/19 13:48 Ordered Resuscitation Status Routine Resus Stat 12/14/19 13:48 Ordered Medication Orders Acetaminophen (Tylenol) 650 mg PO Q4H PRN PRN Reason: Pain (Mild 1-3)/fever Aspirin (Aspirin) 81 mg PO DAILY [facility] Clopidogrel Bisulfate (Plavix) 75 mg PO DAILY [facility] Heparin Sodium (Porcine) (Heparin Sodium) 0 units IV .PROTOCOL JOSE; Protocol Heparin Sodium/Sodium Chloride (Heparin 25,000 Units In 1/2 Ns 500 Ml) 25,000 units in 500 mls @ 17.745 mls/hr IV ONETIME ONE Stop: 12/15/19 17:25 Last Admin: 12/14/19 13:21 Dose: 12 units/kg/hr, 17.745 mls/hr Isosorbide Mononitrate (Imdur) 90 mg PO BID [facility] Losartan Potassium (Cozaar) 100 mg PO DAILY [facility] Nifedipine (Procardia Xl) 30 mg PO DAILY [facility] Non-Formulary Medication (Esomeprazole Magnesium [Esomeprazole Magnesium]) 20 mg PO BID [facility] Non-Formulary Medication (Rosuvastatin Calcium [Rosuvastatin Calcium]) 20 mg PO DAILY [facility] Ondansetron HCl (Zofran) 4 mg IVPUSH Q4H PRN PRN Reason: Nausea/Vomiting Sodium Chloride (Saline Flush) 10 ml FLUSH ASDIRECTED PRN PRN Reason: Keep Vein Open Zolpidem Tartrate (Ambien) 5 mg PO BEDTIME PRN PRN Reason: Sleep Assessment/Plan Comment:: 84-year-old gentleman with known coronary artery disease, hypertension, dyslipidemia. The patient has a history of elevated creatinine due to nephrectomy Presented with chest pain associated with activity Improved with rest and nitroglycerin sublingual No acute EKG changes, troponin is elevated, (0.11) about the same as a few days ago Concern for unstable angina We'll monitor on telemetry Repeat troponins If there is increasing tendency consider transferring the patient for reevaluation by cardiology If troponins remain the same there is likely a component of the decreased renal function If troponins remain the same we'll follow cardiology recommendations and set up outpatient stress test In the meantime treat with weight based heparin nomogram Continue aspirin, Plavix Continue imdur Hypertension Continue Cozaar, nifedipine, imdur We will adjust as needed Status post nephrectomy Monitor electrolytes and renal function DVT prophylaxis with full dose anticoagulation
[2019-12-14] MEDS ORDERED: Heparin Sodium/0.45% NaCl 25,000 UNITS/500 ML BAG IV SCH (15:00)
[2019-12-14] MEDS: Omeprazole 20 MG Cap.CR PO SCH (17:12)
[2019-12-14] MEDS: Isosorbide Mononitrate 30 MG Tab.ER PO SCH (20:59)
[2019-12-15 04:14] LABS: ANION GAP 11.1 mEq/L (7-13)
[2019-12-15] MEDS: Omeprazole 20 MG Cap.CR PO SCH (06:06)
[2019-12-15] MEDS ORDERED: NIFEdipine 30 MG Tab.ER PO SCH (09:00)
[2019-12-15] MEDS ORDERED: Aspirin 81 MG Tab.Chew PO SCH (09:00)
[2019-12-15] MEDS ORDERED: Clopidogrel 75 MG Tab PO SCH (09:00)
[2019-12-15] MEDS ORDERED: Rosuvastatin 10 MG Tab PO SCH (09:00)
[2019-12-15] MEDS ORDERED: Losartan 50 MG Tab PO SCH (09:00)
[2019-12-15] MEDS: Isosorbide Mononitrate 30 MG Tab.ER PO SCH (09:33)
--- NOTE | 2019-12-15 10:56 | PCM.DCSUM1 ---
Discharge Summary - Hospital Course Free Text/Narrative:: 84-year-old gentleman with known coronary artery disease, hypertension, dyslipidemia. The patient has a history of elevated creatinine due to nephrectomy Presented with chest pain associated with activity Improved with rest and nitroglycerin sublingual No acute EKG changes, troponin is elevated, (0.11) about the same as a few days ago during admission had no recurrent cp no arrythmia on tele Repeat troponins were stable we'll follow cardiology recommendations and set up outpatient stress test Continue aspirin, Plavix Continue imdur Hypertension Continue Cozaar, nifedipine, imdur well controlled Status post nephrectomy stable electrolytes and renal function Diagnosis: Stroke: No - Discharge Data Discharge Date: 12/15/19 Discharge Disposition: Home, Self-Care 01 Condition: Good - Referral to Home Health Primary Care Physician: PCP Unobtainable - Discharge Diagnosis/Problem(s) (1) CAD (coronary artery disease) SNOMED Code(s): 04606682 ICD Code: I25.10 - ATHSCL HEART DISEASE OF [place] CORONARY ARTERY W/O ANG PCTRS Status: Acute Current Visit: No Qualifiers: Coronary Disease-Associated Artery/Lesion type: unspecified vessel or lesion type [place] vs. transplanted heart: [place] heart Associated angina: without angina Qualified Code(s): I25.10 - Atherosclerotic heart disease of [place] coronary artery without angina pectoris (2) CKD (chronic kidney disease) SNOMED Code(s): 599738972 ICD Code: N18.9 - CHRONIC KIDNEY DISEASE, UNSPECIFIED Status: Acute Current Visit: No (3) Elevated troponin SNOMED Code(s): 199909422, 997841129, 268857329 ICD Code: R79.89 - OTHER SPECIFIED ABNORMAL FINDINGS OF BLOOD CHEMISTRY Status: Acute Current Visit: No (4) Hyperlipidemia SNOMED Code(s): 30380417 ICD Code: E78.5 - HYPERLIPIDEMIA, UNSPECIFIED Status: Acute Current Visit : No (5) Hypertension SNOMED Code(s): 27533301 ICD Code: I10 - ESSENTIAL (PRIMARY) HYPERTENSION Status: Acute Current Visit: No Onset Date: 09/21/15 (6) Unstable angina SNOMED Code(s): 1173255, 272434070 ICD Code: I20.0 - UNSTABLE ANGINA Status: Acute Current Visit: No - Patient Instructions Diet: Heart Healthy Diet Activity: As Tolerated - Discharge Plan *PRESCRIPTION DRUG MONITORING PROGRAM REVIEWED*: Not Applicable *COPY OF PRESCRIPTION DRUG MONITORING REPORT IN PATIENT JASVIR: Not Applicable Home Medications: Home Meds Calcium Carb, Citrate/Vit D3 [Calcium + D3 ER Tablet] 1 tab PO BID 03/22/16 [ History] Furosemide [Lasix] 20 mg PO ASDIRECTED 03/22/16 [History] Clopidogrel Bisulfate [Clopidogrel] 75 mg PO DAILY 05/23/16 [History] Nitroglycerin [IJP: Nitroglycerin] 1 tab SL ASDIRECTED PRN 05/23/16 [History] Aspirin 81 mg PO DAILY 09/15/16 [History] Acetaminophen 1,000 mg PO Q6H PRN 11/26/18 [History] Esomeprazole Magnesium 20 mg PO BID 11/26/18 [History] Isosorbide Mononitrate [Isosorbide Mononitrate ER] 90 mg PO BID 11/27/18 [ History] Losartan Potassium 75 mg PO BID 11/27/18 [History] NIFEdipine [Nifedipine ER] 30 mg PO DAILY 11/27/18 [History] Rosuvastatin Calcium 20 mg PO DAILY 12/11/19 [History] Ubidecarenone [Coenzyme Q10] 100 mg PO DAILY 12/11/19 [History] Forms: ED Department Discharge - Discharge Summary/Plan Comment DC Time >30 min.: No - General Info Date of Service: 12/15/19 Functional Status: Reports: Pain Controlled - Review of Systems General: Denies: Fever, Weakness Pulmonary: Denies: Shortness of Breath Cardiovascular: Denies: Chest Pain, Edema Gastrointestinal: Denies: Abdominal Pain - Patient Data Vitals - Most Recent: Last Vital Signs Temp 99.1 F 12/15/19 07:57 Pulse 50 L 12/15/19 07:57 Resp 20 12/15/19 07:57 BP 137/62 12/15/19 09:34 Pulse Ox 98 12/15/19 07:57 Weight - Most Recent: 158 lb 3.2 oz I&O - Last 24 hours: Intake & Output 12/14/19 12/15/19 12/15/19 22:59 06:59 14:59 Intake Total 860 500 Output Total 300 Balance 560 500 Lab Results - Last 24 hrs: Laboratory Results - last 24 hr 04/18/20 04/18/20 04/18/20 Range/Units 12:13 12:13 12:13 WBC 4.9 L (5.0-10.0) 10^3/uL RBC 3.81 L (4.6-6.2) 10^6/uL Hgb 12.3 L (14.0-18.0) g/dL Hct 35.2 L (40.0-54.0) % MCV 92.4 (80-100) fL MCH 32.3 (27.0-34.0) pg MCHC 34.9 (33.0-35.0) g/dL Plt Count 184 (150-450) 10^3/uL Neut % (Auto) 56.0 (42.2-75.2) % Lymph % (Auto) 28.7 (20.5-50.1) % [place] % (Auto) 11.4 H (2-8) % Eos % (Auto) 3.5 H (1.0-3.0) % Baso % (Auto) 0.4 (0.0-1.0) % PT 10.1 (9.0-12.0) SEC INR 1.1 (0.9-1.2) APTT (22.0-34.0) SEC D-Dimer, Quantitative 1860 H (0-400) ng/mL Sodium 143 (136-145) mmol/L Potassium 4.0 (3.5-5.1) mmol/L Chloride 105 (98-107) mmol/L Carbon Dioxide 29 (21-32) mmol/L Anion Gap 13.0 (7-13) mEq/L BUN 39 H (7-18) mg/dL Creatinine 2.49 H (0.70-1.30) mg/dL Est Cr Clr Drug Dosing 21.02 mL/min Estimated GFR (MDRD) 25 BUN/Creatinine Ratio 15.7 (No establ ref range) Glucose 104 H (74-99) mg/dL Calcium 8.8 (8.5-10.1) mg/dL Total Bilirubin 0.6 (0.2-1.0) mg/dL AST 23 (15-37) U/L ALT 23 (16-63) U/L Alkaline Phosphatase 59 (46-116) U/L Troponin I 0.111 H* (0.000-0.056) ng/mL Total Protein 6.9 (6.4-8.2) g/dL Albumin 3.8 (3.4-5.0) g/dL Globulin 3.1 Albumin/Globulin Ratio 1.2 12/14/19 12/14/19 12/14/19 Range/Units 18:05 19:30 23:30 WBC (5.0-10.0) 10^3/uL RBC (4.6-6.2) 10^6/uL Hgb (14.0-18.0) g/dL Hct (40.0-54.0) % MCV (80-100) fL MCH (27.0-34.0) pg MCHC (33.0-35.0) g/dL Plt Count (150-450) 10^3/uL Neut % (Auto) (42.2-75.2) % Lymph % (Auto) (20.5-50.1) % [place] % (Auto) (2-8) % Eos % (Auto) (1.0-3.0) % Baso % (Auto) (0.0-1.0) % PT (9.0-12.0) SEC INR (0.9-1.2) APTT 103.5 H* 67.7 H (22.0-34.0) SEC D-Dimer, Quantitative (0-400) ng/mL Sodium (136-145) mmol/L Potassium (3.5-5.1) mmol/L Chloride (98-107) mmol/L Carbon Dioxide (21-32) mmol/L Anion Gap (7-13) mEq/L BUN (7-18) mg/dL Creatinine (0.70-1.30) mg/dL Est Cr Clr Drug Dosing mL/min Estimated GFR (MDRD) BUN/Creatinine Ratio (No establ ref range) Glucose (74-99) mg/dL Calcium (8.5-10.1) mg/dL Total Bilirubin (0.2-1.0) mg/dL AST (15-37) U/L ALT (16-63) U/L Alkaline Phosphatase (46-116) U/L Troponin I 0.108 H* (0.000-0.056) ng/mL Total Protein (6.4-8.2) g/dL Albumin (3.4-5.0) g/dL Globulin Albumin/Globulin Ratio 04/19/20 04/19/20 04/19/20 Range/Units 03:40 03:40 03:40 WBC 4.2 L (5.0-10.0) 10^3/uL RBC 3.11 L (4.6-6.2) 10^6/uL Hgb 10.0 L D (14.0-18.0) g/dL Hct 28.9 L (40.0-54.0) % MCV 92.9 (80-100) fL MCH 32.2 (27.0-34.0) pg MCHC 34.6 (33.0-35.0) g/dL Plt Count 162 (150-450) 10^3/uL Neut % (Auto) 52.4 (42.2-75.2) % Lymph % (Auto) 30.4 (20.5-50.1) % [place] % (Auto) 12.0 H (2-8) % Eos % (Auto) 5.0 H (1.0-3.0) % Baso % (Auto) 0.2 (0.0-1.0) % PT (9.0-12.0) SEC INR (0.9-1.2) APTT 78.6 H (22.0-34.0) SEC D-Dimer, Quantitative (0-400) ng/mL Sodium 143 (136-145) mmol/L Potassium 4.1 (3.5-5.1) mmol/L Chloride 109 H (98-107) mmol/L Carbon Dioxide 27 (21-32) mmol/L Anion Gap 11.1 (7-13) mEq/L BUN 36 H (7-18) mg/dL Creatinine 2.57 H (0.70-1.30) mg/dL Est Cr Clr Drug Dosing 19.65 mL/min Estimated GFR (MDRD) 24 BUN/Creatinine Ratio (No establ ref range) Glucose 124 H (74-99) mg/dL Calcium 8.0 L (8.5-10.1) mg/dL Total Bilirubin (0.2-1.0) mg/dL AST (15-37) U/L ALT (16-63) U/L Alkaline Phosphatase (46-116) U/L Troponin I 0.082 H* (0.000-0.056) ng/mL Total Protein (6.4-8.2) g/dL Albumin (3.4-5.0) g/dL Globulin Albumin/Globulin Ratio 12/15/19 Range/Units 07:32 WBC (5.0-10.0) 10^3/uL RBC (4.6-6.2) 10^6/uL Hgb (14.0-18.0) g/dL Hct (40.0-54.0) % MCV (80-100) fL MCH (27.0-34.0) pg MCHC (33.0-35.0) g/dL Plt Count (150-450) 10^3/uL Neut % (Auto) (42.2-75.2) % Lymph % (Auto) (20.5-50.1) % [place] % (Auto) (2-8) % Eos % (Auto) (1.0-3.0) % Baso % (Auto) (0.0-1.0) % PT (9.0-12.0) SEC INR (0.9-1.2) APTT 86.0 H (22.0-34.0) SEC D-Dimer, Quantitative (0-400) ng/mL Sodium (136-145) mmol/L Potassium (3.5-5.1) mmol/L Chloride (98-107) mmol/L Carbon Dioxide (21-32) mmol/L Anion Gap (7-13) mEq/L BUN (7-18) mg/dL Creatinine (0.70-1.30) mg/dL Est Cr Clr Drug Dosing mL/min Estimated GFR (MDRD) BUN/Creatinine Ratio (No establ ref range) Glucose (74-99) mg/dL Calcium (8.5-10.1) mg/dL Total Bilirubin (0.2-1.0) mg/dL AST (15-37) U/L ALT (16-63) U/L Alkaline Phosphatase (46-116) U/L Troponin I (0.000-0.056) ng/mL Total Protein (6.4-8.2) g/dL Albumin (3.4-5.0) g/dL Globulin Albumin/Globulin Ratio Med Orders - Current: Current Medications Acetaminophen (Tylenol) 650 mg PO Q4H PRN PRN Reason: Pain (Mild 1-3)/fever Aspirin (Aspirin) 81 mg PO DAILY [facility] Last Admin: 12/15/19 09:33 Dose: 81 mg Clopidogrel Bisulfate (Plavix) 75 mg PO DAILY [facility] Last Admin: 12/15/19 09:34 Dose: 75 mg Heparin Sodium/Sodium Chloride (Heparin 25,000 Units In 1/2 Ns 500 Ml) 25,000 units in 500 mls @ 17.222 mls/hr IV TITRATE [facility]; Protocol Last Titration: 12/15/19 08:54 Dose: 6.84 units/kg/hr, 9.816 mls/hr Isosorbide Mononitrate (Imdur) 90 mg PO BID [facility] Last Admin: 12/15/19 09:33 Dose: 90 mg Losartan Potassium (Cozaar) 100 mg PO DAILY [facility] Last Admin: 12/15/19 09:33 Dose: 100 mg Nifedipine (Procardia Xl) 30 mg PO DAILY [facility] Last Admin: 12/15/19 09:34 Dose: 30 mg [facility] Admin: 12/15/19 06:06 Dose: 20 mg Ondansetron HCl (Zofran) 4 mg IVPUSH Q4H PRN PRN Reason: Nausea/Vomiting Rosuvastatin Calcium (Crestor) 20 mg PO DAILY [facility] Last Admin: 12/15/19 09:34 Dose: 20 mg Sodium Chloride (Saline Flush) 10 ml FLUSH ASDIRECTED PRN PRN Reason: Keep Vein Open Zolpidem Tartrate (Ambien) 5 mg PO BEDTIME PRN PRN Reason: Sleep Discontinued Medications Aspirin (Aspirin) 324 mg PO ONETIME ONE Stop: 12/14/19 12:24 Last Admin: 12/14/19 12:28 Dose: 324 mg Heparin Sodium (Porcine) (Heparin Sodium) 4,000 units IVPUSH .BOLUS ONE Stop: 12/14/19 13:15 Last Admin: 12/14/19 13:20 Dose: 4,000 units Heparin Sodium/Sodium Chloride (Heparin 25,000 Units In 1/2 Ns 500 Ml) 25,000 units in 500 mls @ 17.745 mls/hr IV ONETIME ONE Stop: 12/15/19 17:25 Last Admin: 12/14/19 13:21 Dose: 12 units/kg/hr, 17.745 mls/hr - Exam General: Reports: Alert, Oriented Neck: Reports: Supple Lungs: Reports: Clear to Auscultation, Normal Respiratory Effort Cardiovascular: Reports: Regular Rate, Regular Rhythm Extremities: Normal Inspection
[2019-12-15 12:32] VITALS: BP 135/50; PULSE 54
== END 2019-12-15 12:57 | disposition home or self-care (01) ==
LOC: DL.ED 11:59 → DL.MS 13:19 → DL.ED 13:25
PROVIDERS: ADMIT Internal Medicine; ATTEND Internal Medicine
DX: I25.110 Atherosclerotic heart disease of native coronary artery with unstable angina pectoris (principal); K21.9 Gastro-esophageal reflux disease without esophagitis; F41.9 Anxiety disorder, unspecified; E78.00 Pure hypercholesterolemia, unspecified; I12.9 Hypertensive chronic kidney disease with stage 1 through stage 4 chronic kidney disease, or unspecified chronic kidney disease; N18.9 Chronic kidney disease, unspecified; E78.5 Hyperlipidemia, unspecified; Z90.5 Acquired absence of kidney; Z85.528 Personal history of other malignant neoplasm of kidney; Z95.5 Presence of coronary angioplasty implant and graft; Z88.5 Allergy status to narcotic agent; Z88.8 Allergy status to other drugs, medicaments and biological substances; Z79.82 Long term (current) use of aspirin; Z79.899 Other long term (current) drug therapy
CPT/HCPCS: 36415; 71045; 80048; 80053; 84484; 85025; 85379; 85610; 85730; 93005; 96374; 99285; A9270; J1644; 96361; 96365; 96366; 96375; 99217; 99218; 99284; G0378

== ENCOUNTER 2021-08-31 22:13 | Emergency (ER) | payer MEDICARE, OTHER ==
[2021-08-31 22:33] VITALS: BP 213/80; PULSE 55
--- NOTE | 2021-08-31 23:00 | EDM.PDOC ---
ED HPI GENERAL MEDICAL PROBLEM - General Chief Complaint: Cardiovascular Problem Stated Complaint: HIGH BLOOD PRESSURE Time Seen by Provider: 08/31/21 22:50 Source of Information: Reports: Patient History Limitations: Reports: No Limitations - History of Present Illness INITIAL COMMENTS - FREE TEXT/NARRATIVE: This 86 yo male patient reports to the ED due to an elevated blood pressure while at home (200's/120's). The patient reports he took an additional dose of his Imdur about 2 hours prior to coming to the ED. The patient reports he has also had some left sided chest tightness. The patient reports he has had a history of 5 cardiac stents and chronic kidney problems (only has 1 kidney). Onset: Today Duration: Minutes:, Constant Location: Reports: Chest Quality: Reports: Pressure Severity: Mild Improves with: Reports: None Worsens with: Reports: None Context: Reports: Other Associated Symptoms: Reports: Chest Pain (pressure or tightness) - Related Data Allergies Allergy/AdvReac Type Severity Reaction Status Date / Time codeine Allergy Hallucinati Verified 08/31/21 22:43 ons hydralazine Allergy Headache Verified 08/31/21 22:43 lansoprazole [From Prevacid] Allergy Rash Verified 08/31/21 22:43 morphine Allergy Cannot Verified 08/31/21 22:43 Remember Home Meds: Home Meds Calcium Carb, Citrate/Vit D3 [Calcium + D3 ER Tablet] 1 tab PO BID 03/22/16 [History] Furosemide [Lasix] 20 mg PO ASDIRECTED 03/22/16 [History] Clopidogrel Bisulfate [Clopidogrel] 75 mg PO DAILY 05/23/16 [History] Nitroglycerin [IJP: Nitroglycerin] 1 tab SL ASDIRECTED PRN 05/23/16 [History] Aspirin 81 mg PO DAILY 09/15/16 [History] Acetaminophen 1,000 mg PO Q6H PRN 11/26/18 [History] Esomeprazole Magnesium 20 mg PO BID 11/26/18 [History] Isosorbide Mononitrate [Isosorbide Mononitrate ER] 90 mg PO BID 11/27/18 [History] Losartan Potassium 75 mg PO BID 11/27/18 [History] NIFEdipine [Nifedipine ER] 30 mg PO DAILY 11/27/18 [History] Rosuvastatin Calcium 20 mg PO DAILY 12/11/19 [History] Ubidecarenone [Coenzyme Q10] 100 mg PO DAILY 12/11/19 [History] Past Medical History HEENT History: Reports: Allergic Rhinitis, Cataract, Hard of Hearing, Impaired Vision Cardiovascular History: Reports: CAD, High Cholesterol, Hypertension, [place], Stents, Other (See Below) Other Cardiovascular History: varicosities Respiratory History: Reports: None Gastrointestinal History: Reports: GERD, Other (See Below) Other Gastrointestinal History: subacute diverticulitis Genitourinary History: Reports: Renal Disease, Other (See Below) Other Genitourinary History: proteinuria Musculoskeletal History: Reports: Arthritis Neurological History: Reports: None Psychiatric History: Reports: Anxiety Endocrine/Metabolic History: Reports: None Hematologic History: Reports: None Immunologic History: Reports: None Oncologic (Cancer) History: Reports: Prostate, Renal Other Oncologic History: skin Dermatologic History: Reports: None - Infectious Disease History Infectious Disease History: Reports: Chicken Pox - Past Surgical History Head Surgeries/Procedures: Reports: None HEENT Surgical History: Reports: Cataract Surgery, Naso-Sinus Surgery, Other (See Below) Other HEENT Surgeries/Procedures: septoplasty Cardiovascular Surgical History: Reports: Coronary Artery Stent GI Surgical History: Reports: Appendectomy Male Surgical History: Reports: Nephrectomy, Other (See Below) Other Male Surgeries/Procedures: Patient had 1 kidney removed w/precancerous markers Musculoskeletal Surgical History: Reports: None Dermatological Surgical History: Reports: Other (See Below) Social & Family History - Family History Family Medical History: No Pertinent Family History - Tobacco Use Tobacco Use Status *Q: Unknown Ever Used Tobacco - Caffeine Use Caffeine Use: Reports: None ED ROS GENERAL - Review of Systems Review Of Systems: Comprehensive ROS is negative, except as noted in HPI. ED EXAM, GENERAL - Physical Exam Exam: See Below Exam Limited By: No Limitations General Appearance: Alert, Mild Distress Eye Exam: Bilateral Eye: EOMI, Normal Inspection, PERRL Ears: Normal External Exam, Normal Canal, Hearing Grossly Normal, Normal TMs, Other (bilateral hearing aids) Nose: Normal Inspection, Normal Mucosa, No Blood Throat/Mouth: Normal Inspection, Normal Lips, Normal Teeth, Normal Gums, Normal Oropharynx, Normal Voice, No Airway Compromise Head: Atraumatic, Normocephalic Neck: Normal Inspection, Supple, Non-Tender, Full Range of Motion Respiratory/Chest: No Respiratory Distress, Lungs Clear, Normal Breath Sounds, No Accessory Muscle Use, Chest Non-Tender Cardiovascular: Normal Peripheral Pulses, Regular Rate, Rhythm, No Edema, No Gallop, No JVD, No Murmur, No Rub GI/Abdominal: Normal Bowel Sounds, Soft, Non-Tender, No Organomegaly, No Distention, No Abnormal Bruit, No Mass (Male) Exam: Deferred Rectal (Males) Exam: Deferred Back Exam: Normal Inspection, Full Range of Motion, NT Extremities: Normal Inspection, Normal Range of Motion, Non-Tender, Normal Capillary Refill, No Pedal Edema Neurological: Alert, Oriented, CN II-XII Intact, Normal Cognition, Normal Gait, Normal Reflexes, No Motor/Sensory Deficits Psychiatric: Normal Affect, Normal Mood Skin Exam: Warm, Dry, Intact, Normal Color, No Rash Lymphatic: No Adenopathy #1 Interpretation EKG Date: 08/31/21 Time: 23:00 Rhythm: NSR Rate (Beats/Min): 57 [place]: Normal P-Wave: Present QRS: Normal ST-T: Normal QT: Normal Comparison: NA - No Prior EKG Course - Vital Signs Last Recorded V/S: Last Vital Signs Temp 98.7 F 08/31/21 22:29 Pulse 55 L 08/31/21 22:29 Resp 18 08/31/21 22:29 BP 213/80 H 08/31/21 22:29 Pulse Ox 97 08/31/21 22:29 - Orders/Labs/Meds Orders: Active Orders 24 hr Category Date Time Status TROPONIN I HIGH SENSITIVITY [CHEM] Timed Lab 09/01/21 01:10 Ordered Labs: Laboratory Tests 08/31/21 08/31/21 Range/Units 23:10 23:10 WBC 4.6 L (5.0-10.0) 10^3/uL RBC 3.46 L (4.6-6.2) 10^6/uL Hgb 10.9 L (14.0-18.0) g/dL Hct 32.3 L (40.0-54.0) % MCV 93.4 (80-100) fL MCH 31.5 (27.0-34.0) pg MCHC 33.7 (33.0-35.0) g/dL Plt Count 201 (150-450) 10^3/uL Neut % (Auto) 59.3 (42.2-75.2) % Lymph % (Auto) 23.9 (20.5-50.1) % [place] % (Auto) 10.9 H (2-8) % Eos % (Auto) 5.5 H (1.0-3.0) % Baso % (Auto) 0.4 (0.0-1.0) % Sodium 147 H (136-145) mmol/L Potassium 4.6 (3.5-5.1) mmol/L Chloride 110 H (98-107) mmol/L Carbon Dioxide 28 (21-32) mmol/L Anion Gap 13.6 H (7-13) mEq/L BUN 46 H (7-18) mg/dL Creatinine 2.98 H (0.70-1.30) mg/dL Est Cr Clr Drug Dosing 16.35 mL/min Estimated GFR (MDRD) 20 BUN/Creatinine Ratio 15.4 (No establ ref range) Glucose 91 (70-99) mg/dL Calcium 8.3 L (8.5-10.1) mg/dL Total Bilirubin 0.3 (0.2-1.0) mg/dL AST 20 (15-37) U/L ALT 19 (16-63) U/L Alkaline Phosphatase 60 (46-116) U/L Troponin I High Sens 116 H* (<=76) pg/mL Total Protein 7.1 (6.4-8.2) g/dL Albumin 3.6 (3.4-5.0) g/dL Globulin 3.5 Albumin/Globulin Ratio 1.0 - Re-Assessments/Exams Free Text/Narrative Re-Assessment/Exam: 08/31/21 23:00 Patient's blood pressure at examination was 163/74. Departure - Departure Time of Disposition: 01:37 Disposition: Home, Self-Care 01 Condition: Fair Clinical Impression: Elevated blood pressure reading, Nonspecific chest pain Instructions: Nonspecific Chest Pain, Adult, [id number], Hypertension, Adult, [id number] Forms: ED Department Discharge Care Plan Goals: The patient was advised of the examination, lab results, EKG and repeat lab results during the visit. The patient's blood pressure did come down to a normal range during the visit. The patient was encouraged to follow-up with his primary care facility for continued evaluation and management. If the patient has any additional symptoms or concerns, the patient should either return to the emergency department or visit his primary care facility. Sepsis Event Note (ED) - Evaluation Sepsis Screening Result: No Definite Risk - Focused Exam Vital Signs: Vital Signs Temp Pulse Resp BP Pulse Ox 08/31/21 22:29 98.7 F 55 L 18 213/80 H 97 - My Orders Last 24 Hours: My Active Orders 09/01/21 01:10 TROPONIN I HIGH SENSITIVITY [CHEM] Timed - Assessment/Plan Last 24 Hours: My Active Orders 09/01/21 01:10 TROPONIN I HIGH SENSITIVITY [CHEM] Timed
[2021-08-31 23:36] LABS: ANION GAP 13.6 mEq/L (7-13)
== END 2021-09-01 01:46 | disposition home or self-care (01) ==
LOC: DL.ED 22:13
DX: I10 Essential (primary) hypertension (principal); R07.89 Other chest pain; I25.10 Atherosclerotic heart disease of native coronary artery without angina pectoris; E78.00 Pure hypercholesterolemia, unspecified; I25.2 Old myocardial infarction; K21.9 Gastro-esophageal reflux disease without esophagitis; M19.90 Unspecified osteoarthritis, unspecified site; Z88.5 Allergy status to narcotic agent; Z88.8 Allergy status to other drugs, medicaments and biological substances; Z79.82 Long term (current) use of aspirin; Z79.02 Long term (current) use of antithrombotics/antiplatelets; Z79.899 Other long term (current) drug therapy
CPT/HCPCS: 36415; 80053; 84484; 85025; 93005; 99285-25

== ENCOUNTER 2022-03-13 09:07 | Emergency (ER) | payer MEDICARE, OTHER ==
[2022-03-13] MEDS ORDERED: Doxycycline Monohydrate 100 MG Cap PO ONE (09:08)
[2022-03-13 09:27] VITALS: BP 147/68; PULSE 67
[2022-03-13] MEDS ORDERED: Doxycycline Monohydrate 100 MG Cap ONE (09:36)
== END 2022-03-13 09:40 | disposition home or self-care (01) ==
LOC: DL.ED 09:07
DX: L08.9 Local infection of the skin and subcutaneous tissue, unspecified (principal); I25.10 Atherosclerotic heart disease of native coronary artery without angina pectoris; I10 Essential (primary) hypertension; I25.2 Old myocardial infarction; Z88.5 Allergy status to narcotic agent; Z88.6 Allergy status to analgesic agent; Z88.8 Allergy status to other drugs, medicaments and biological substances; Z79.899 Other long term (current) drug therapy; Z79.82 Long term (current) use of aspirin; Z90.49 Acquired absence of other specified parts of digestive tract
CPT/HCPCS: 99283; A9270

== ENCOUNTER 2022-04-10 19:06 | Emergency (ER) | payer MEDICARE, OTHER ==
[2022-04-10 23:54] LABS: ANION GAP 14.2 mEq/L (7-13); CHLORIDE,CL 104 mmol/L (98-107); SODIUM,NA 141 mmol/L (136-145)
[2022-04-10 23:55] LABS: ESTIMATED GFR 13 mL/min (>=60)
[2022-04-11 00:12] VITALS: BP 123/78; PULSE 75
== END 2022-04-11 | disposition home or self-care (01) ==
LOC: DL.ED 19:06
DX: U07.1 COVID-19 (principal); I25.10 Atherosclerotic heart disease of native coronary artery without angina pectoris; E78.00 Pure hypercholesterolemia, unspecified; I10 Essential (primary) hypertension; I25.2 Old myocardial infarction; K21.9 Gastro-esophageal reflux disease without esophagitis; Z88.5 Allergy status to narcotic agent; Z88.8 Allergy status to other drugs, medicaments and biological substances; Z79.02 Long term (current) use of antithrombotics/antiplatelets; Z79.82 Long term (current) use of aspirin; Z79.899 Other long term (current) drug therapy; Z99.2 Dependence on renal dialysis
CPT/HCPCS: 36415; 71045; 80053; 83880; 85025; 99283; 99284; U0002

== ENCOUNTER 2023-02-09 10:37 | Emergency (ER) | payer MEDICARE, OTHER ==
[2023-02-09 11:02] VITALS: BP 162/56; PULSE 59
[2023-02-09] MEDS ORDERED: Sodium Chloride 0.9% 10 ML Syringe FLUSH PRN (11:16)
[2023-02-09 11:31] LABS: BASOPHILS PERCENT AUTO 0.3 % (0.0-1.0); EOSINOPHILS PERCENT AUTO 3.2 % (1.0-3.0); HEMOGLOBIN 9.8 g/dL (14.0-18.0); LYMPHOCYTES PERCENT AUTO 13.3 % (20.5-50.1); MEAN CORPUSCULAR HEMOGLOBIN 33.3 pg (27.0-34.0); MEAN CORPUSCULAR HGB CONC 33.8 g/dL (33.0-35.0); MEAN CORPUSCULAR VOLUME 98.6 fL (80-100); NEUTROPHILS PERCENT AUTO 72.2 % (42.2-75.2); PLATELET COUNT,PLT 170 10^3/uL (150-450); RED BLOOD CELL COUNT 2.94 10^6/uL (4.6-6.2); WHITE BLOOD CELL COUNT,WBC 7.8 10^3/uL (5.0-10.0)
[2023-02-09 11:47] LABS: APPEARANCE,URINE CLEAR (CLEAR); BILIRUBIN,URINE NEGATIVE (NEGATIVE); COLOR,URINE YELLOW (YELLOW); GLUCOSE,URINE NEGATIVE (NEGATIVE); KETONES,URINE NEGATIVE (NEGATIVE); LEUKOCYTE ESTERASE,URINE NEGATIVE (NEGATIVE); NITRITE,URINE NEGATIVE (NEGATIVE); OCCULT BLOOD,URINE NEGATIVE (NEGATIVE); PROTEIN,URINE 100 (NEGATIVE); UROBILINOGEN,URINE 0.2 mg/dL (0.2-1.0)
[2023-02-09 11:52] LABS: A/G RATIO 1.2; ALBUMIN 3.5 g/dL (3.4-5.0); ANION GAP 11.1 mEq/L (7-13); BILIRUBIN TOTAL 0.6 mg/dL (0.2-1.0); BUN/CREATININE RATIO 10.2 (No establ ref range); C-REACTIVE PROTEIN 2.4 mg/dL (0.0-0.9); CALCIUM 8.3 mg/dL (8.5-10.1); CREATININE 3.62 mg/dL (0.70-1.30); EST CRCL DRUG DOSING (CG) 13.22 mL/min; MAGNESIUM 2.1 mg/dL (1.8-2.4); POTASSIUM,K 4.1 mmol/L (3.5-5.1); PROTEIN TOTAL,TP 6.4 g/dL (6.4-8.2)
[2023-02-09 11:59] LABS: AMORPHOUS SEDIMENT,URINE FEW /HPF (NOT SEEN); BACTERIA,URINE RARE /HPF (0-FEW/HPF); EPITHELIAL CELLS,URINE RARE /HPF (NOT SEEN); MUCUS,URINE FEW /LPF (NOT SEEN); RBC,URINE 0-5 /HPF (0-5); WBC,URINE 0-5 /HPF (0-5/HPF)
== END 2023-02-09 12:21 | disposition home or self-care (01) ==
LOC: DL.ED 10:37
DX: B34.9 Viral infection, unspecified (principal); I25.10 Atherosclerotic heart disease of native coronary artery without angina pectoris; I10 Essential (primary) hypertension; I25.2 Old myocardial infarction; E78.00 Pure hypercholesterolemia, unspecified; K21.9 Gastro-esophageal reflux disease without esophagitis; M19.90 Unspecified osteoarthritis, unspecified site; Z88.5 Allergy status to narcotic agent; Z88.8 Allergy status to other drugs, medicaments and biological substances; Z79.82 Long term (current) use of aspirin; Z79.899 Other long term (current) drug therapy
CPT/HCPCS: 36415; 71046; 80053; 81001; 83605; 83735; 85025; 86140; 87804; 99283; 99285; J3490

== ENCOUNTER 2024-05-10 08:20 | Emergency (ER) | payer MEDICARE, OTHER ==
[2024-05-10 08:46] LABS: BASOPHILS PERCENT AUTO 0.2 % (0.0-1.0); EOSINOPHILS PERCENT AUTO 1.3 % (1.0-3.0); HEMATOCRIT 34.6 % (40.0-54.0); HEMOGLOBIN 11.4 g/dL (14.0-18.0); LYMPHOCYTES PERCENT AUTO 25.3 % (20.5-50.1); MEAN CORPUSCULAR HEMOGLOBIN 32.4 pg (27.0-34.0); MEAN CORPUSCULAR HGB CONC 32.9 g/dL (33.0-35.0); MEAN CORPUSCULAR VOLUME 98.3 fL (80-100); MONOCYTES PERCENT AUTO 15.2 % (2-8); PLATELET COUNT,PLT 181 10^3/uL (150-450); RED BLOOD CELL COUNT 3.52 10^6/uL (4.6-6.2)
[2024-05-10 08:53] VITALS: BP 116/60; PULSE 100
[2024-05-10 09:07] LABS: A/G RATIO 1.1; ANION GAP 15.5 mEq/L (7-13); BILIRUBIN TOTAL 0.7 mg/dL (0.2-1.0); BUN/CREATININE RATIO 9.6 (No establ ref range); CALCIUM 9.7 mg/dL (8.5-10.1); EST CRCL DRUG DOSING (CG) 8.03 mL/min; MAGNESIUM 2.3 mg/dL (1.8-2.4); POTASSIUM,K 4.5 mmol/L (3.5-5.1); PROTEIN TOTAL,TP 7.6 g/dL (6.4-8.2); PROTHROMBIN TIME 10.3 SEC (9.0-12.0); PTT,PARTIAL THROMBOPLSTIN TIME 26.9 SEC (22.0-34.0)
[2024-05-10 09:10] LABS: CREATININE 5.74 mg/dL (0.70-1.30)
[2024-05-10 09:16] LABS: APPEARANCE,URINE CLEAR (CLEAR); BILIRUBIN,URINE NEGATIVE (NEGATIVE); COLOR,URINE YELLOW (YELLOW); GLUCOSE,URINE NEGATIVE (NEGATIVE); KETONES,URINE NEGATIVE (NEGATIVE); LEUKOCYTE ESTERASE,URINE NEGATIVE (NEGATIVE); NITRITE,URINE NEGATIVE (NEGATIVE); OCCULT BLOOD,URINE NEGATIVE (NEGATIVE); PH,URINE 7.5 (5.0-9.0); PROTEIN,URINE 30 (NEGATIVE); UROBILINOGEN,URINE 0.2 mg/dL (0.2-1.0)
[2024-05-10 09:33] LABS: BACTERIA,URINE RARE /HPF (0-FEW/HPF); EPITHELIAL CELLS,URINE OCCASIONAL /HPF (NOT SEEN); MUCUS,URINE FEW /LPF (NOT SEEN); RBC,URINE NOT SEEN /HPF (0-5); WBC,URINE NOT SEEN /HPF (0-5/HPF)
[2024-05-10] MEDS ORDERED: Sodium Chloride 0.9%, Bacteriostatic 10 ML MDV IV STA (09:42)
[2024-05-10] MEDS: Sodium Chloride 0.9% 250 ML IV SCH (10:05)
== END 2024-05-10 16:23 ==
LOC: DL.ED 08:20
DX: U07.1 COVID-19 (principal); I12.0 Hypertensive chronic kidney disease with stage 5 chronic kidney disease or end stage renal disease; N18.6 End stage renal disease; Z99.2 Dependence on renal dialysis; R79.89 Other specified abnormal findings of blood chemistry; I25.10 Atherosclerotic heart disease of native coronary artery without angina pectoris; E78.00 Pure hypercholesterolemia, unspecified; K21.9 Gastro-esophageal reflux disease without esophagitis; Z90.49 Acquired absence of other specified parts of digestive tract; Z79.899 Other long term (current) drug therapy; Z79.82 Long term (current) use of aspirin; Z88.5 Allergy status to narcotic agent; Z88.8 Allergy status to other drugs, medicaments and biological substances
CPT/HCPCS: 36415; 71046; 80053; 81001; 83735; 83880; 84484; 85025; 85610; 85730; 87804; 93005; 93010; 99285; J7050; U0002

== ENCOUNTER 2025-04-03 18:06 | Emergency (ER) | payer MEDICARE, OTHER ==
[2025-04-03 19:07] VITALS: BP 165/58; PULSE 56
== END 2025-04-03 19:05 | disposition home or self-care (01) ==
LOC: DL.ED 18:06
DX: T82.838A Hemorrhage due to vascular prosthetic devices, implants and grafts, initial encounter (principal); I25.10 Atherosclerotic heart disease of native coronary artery without angina pectoris; E78.00 Pure hypercholesterolemia, unspecified; I25.2 Old myocardial infarction; I12.0 Hypertensive chronic kidney disease with stage 5 chronic kidney disease or end stage renal disease; N18.6 End stage renal disease; M19.90 Unspecified osteoarthritis, unspecified site; Z90.49 Acquired absence of other specified parts of digestive tract; Z88.5 Allergy status to narcotic agent; Z88.8 Allergy status to other drugs, medicaments and biological substances; Z79.82 Long term (current) use of aspirin; Z79.899 Other long term (current) drug therapy; Z99.2 Dependence on renal dialysis
CPT/HCPCS: 99283

== ENCOUNTER 2025-04-16 12:47 | Emergency (ER) | payer MEDICARE, OTHER ==
[2025-04-16] MEDS ORDERED: Sodium Chloride 0.9% 10 ML Syringe FLUSH PRN (12:56)
[2025-04-16 13:13] LABS: BASOPHILS PERCENT AUTO 0.2 % (0.0-1.0); EOSINOPHILS PERCENT AUTO 5.6 % (1.0-3.0); LYMPHOCYTES PERCENT AUTO 33.7 % (20.5-50.1); MONOCYTES PERCENT AUTO 13.2 % (2-8); NEUTROPHILS PERCENT AUTO 47.3 % (42.2-75.2); PLATELET COUNT,PLT 133 10^3/uL (150-450); RED BLOOD CELL COUNT 3.34 10^6/uL (4.6-6.2); WHITE BLOOD CELL COUNT,WBC 4.8 10^3/uL (5.0-10.0)
[2025-04-16 13:28] LABS: INR 1.0 (0.9-1.2); PTT,PARTIAL THROMBOPLSTIN TIME 25.2 SEC (22.0-34.0)
[2025-04-16 13:32] LABS: A/G RATIO 1.4; ALANINE AMINOTRANSFERASE,ALT 31.0 U/L (16-63); ASPARTATE AMNIOTRANSFERASE,AST 24.0 U/L (15-37); B-TYPE NATRIURETIC PEPTIDE,BNP 217.0 pg/ml (0-100); BILIRUBIN TOTAL 0.5 mg/dL (0.2-1.0); BLOOD UREA NITROGEN,BUN 46.0 mg/dL (7-18); CARBON DIOXIDE,CO2 32.0 mmol/L (21-32); CHLORIDE,CL 104.0 mmol/L (98-107); CREATININE 4.83 mg/dL (0.70-1.30); EST CRCL DRUG DOSING (CG) 9.36 mL/min; ESTIMATED GFR 11.0 mL/min (>=60); GLUCOSE RANDOM 73.0 mg/dL (70-99); POTASSIUM,K 4.5 mmol/L (3.5-5.1); PROTEIN TOTAL,TP 7.0 g/dL (6.4-8.2); SODIUM,NA 142.0 mmol/L (136-145)
[2025-04-16 16:08] VITALS: BP 148/60; PULSE 69
== END 2025-04-16 15:53 | disposition home or self-care (01) ==
LOC: DL.ED 12:47
DX: R42 Dizziness and giddiness (principal); I12.0 Hypertensive chronic kidney disease with stage 5 chronic kidney disease or end stage renal disease; N18.6 End stage renal disease; Z99.2 Dependence on renal dialysis; I25.10 Atherosclerotic heart disease of native coronary artery without angina pectoris; E78.00 Pure hypercholesterolemia, unspecified; I25.2 Old myocardial infarction; Z95.5 Presence of coronary angioplasty implant and graft; K21.9 Gastro-esophageal reflux disease without esophagitis; Z88.5 Allergy status to narcotic agent; Z88.8 Allergy status to other drugs, medicaments and biological substances; Z79.899 Other long term (current) drug therapy; Z79.02 Long term (current) use of antithrombotics/antiplatelets; Z79.82 Long term (current) use of aspirin
CPT/HCPCS: 36415; 70450; 71045; 80053; 83690; 83735; 83880; 84484; 85025; 85610; 85730; 93005; 93010; 99284; 99285; A9270